=== PATIENT | male | born 1940 | race Caucasian/White ===

== ENCOUNTER 2018-06-28 07:36 | Emergency (ER) | payer MEDICARE, OTHER, SELFPAY ==
[2018-06-28 07:39] VITALS: BP 158/90; PULSE 61; RESP 14; TEMP 37.1; O2SAT 96; BMI 28.7
--- NOTE | 2018-06-28 07:47 | RAD_ITS ---
STUDY: X-RAY - LEFT WRIST REASON FOR EXAM: Male, 77 years old. Pain and swelling. No known injury. TECHNIQUE: 3 view(s) of the wrist were obtained. COMPARISON: None. FINDINGS: Normal visualized distal radius and ulna. Normal radiocarpal articulation. Normal distal radioulnar articulation. Normal carpal bones. Normal carpal articulations. There is degenerative arthrosis of the carpometacarpal articulation of the thumb. Normal second through fifth carpometacarpal articulations. Normal visualized metacarpal bones. Soft tissue swelling. RAD/Wrist min 3 Views IMPRESSION: Degenerative changes at the first carpometacarpal joint. Soft tissue swelling. Electronically Signed: Carlos Prater MD at 8:24 EST Tel [phone], Service support ,
--- NOTE | 2018-06-28 07:51 | ED.VISSUMM ---
- ER Visit Summary Date of Service: 06/28/18 Chief Complaint: Atraumatic pain and swelling left wrist History of Present Illness: The patient is a 77 M who presents with atraumatic pain and swelling of left wrist that started yesterday. He states the pain was initially on the ulnar side. Now the pain and swelling encompasses the entire wrist. There is swelling of all of his digits. He denies paresthesia, anesthesia or motor weakness. He denies fever, chills or night sweats. He denies history of gout, pseudogout and is on no antihypertensive medication and specifically hydrochlorothiazide. He denies recent infectious symptoms. He is right-hand dominant. Physical Examination: Vital signs noted and remarkable for elevated blood pressure 158/90. The left wrist is swollen. There is slight discoloration of the skin. There is slight warmth. There is no effusion. There is no lymphangitis and there is no epitrochlear or axillary lymphadenopathy. Capillary refill is normal. Sensation is normal. Median, radial and ulnar function intact. Test Results: Three-view x-ray of the wrist was obtained and interpreted by me as negative for any acute process. There is minimal arthritic changes. There is no fluid noted in the joint. There is no evidence of chondrocalcinosis. White count is 66,000 with 88% segs. Gram stain revealed 3+ WBCs with no organisms. Fluid for crystals will be reviewed by pathologist. Emergency Department Course and Treatment: Differential includes pseudogout, gout and pyogenic arthritis. Will obtain x-ray to determine if there is any significant abnormality otherwise will need to perform arthrocentesis. Patient was consented for arthrocentesis. He was explained risk benefits of the procedure and why the procedure need to be performed. He was given an opportunity ask questions and none were asked. The area was cleansed with ChloraPrep. The skin was anesthetized with 1% lidocaine. The joint was entered and 2 cc of padmini turbid fluid was aspirated. One-to-one mixture of 1% lidocaine and Kenalog was instilled into the joint. Patient tolerated procedure with minimal discomfort. The discomfort was secondary to placing the wrist in proper position i.e. 15-30 degrees of flexion with distraction. Synovial fluid was sent for cell count, differential, crystals and culture. Treatment Plan: Since patient reports improvement after injection with Kenalog and lidocaine will discharge to home especially since there are no organisms seen. It is not uncommon to have synovial count up to and or greater than 100,000 with gout. 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 It may contain incorrect words, spelling, and punctuation that were not noted in review of the chart prior to signing ED Disposition - Plan for ED Patient: Disposition: Home or Assisted Living Chief Complaint: Upper Extremity Injury Instructions: ED Arthritis Gout, ED Diet Gout Referrals: Damon Heaton DO [Primary Care Provider] - 1-2 Days if not improving
[2018-06-28 08:08] VITALS: RESP 20
[2018-06-28] MEDS: Triamcinolone Acetonide 40 MG/ML Vial IU (09:00)
[2018-06-28 09:04] LABS: Pathologist Comment May follow
[2018-06-28 09:34] LABS: RBC /Synovial Fluid 0.019 10^6/uL (0); Synovial Fld Mononuclear WBC % 12.1 %; Synovial Fld Polynuclear WBC % 87.9 %
[2018-06-28 09:56] LABS: AUTO B FLUID DILUENT BKGD CT WBC <0.1 RBC <0.01 (W<.1,R<.01); Appearance /Synovial Fluid Cloudy (CLEAR); Source / Synovial Fluid LEFT WRIST; Source- Body Fluid SYNOVIAL
[2018-06-28 10:07] LABS: Lymph 18 %; Neutrophil 82 % (0-25)
[2018-06-28 10:08] LABS: Body Fluid QC Type(s) BF1Q,BF2Q
[2018-06-28 11:01] VITALS: RESP 18
[2018-06-28 11:56] LABS: Pathologist Review Reviewed
== END 2018-06-28 11:03 | disposition home or self-care (01) ==
PROVIDERS: Emergency Provider Emergency Medicine; Family Provider Student in an Organized Health Care Education/Training Program; PCP Student in an Organized Health Care Education/Training Program
DX: M10.9 Gout, unspecified (principal); M13.132 Monoarthritis, not elsewhere classified, left wrist
CPT/HCPCS: 20605; 20610; 73110; 87070; 87075; 87205; 89050; 89051; 89060; 99283

== ENCOUNTER 2018-07-27 20:46 | Emergency (ER) | payer MEDICARE, OTHER, SELFPAY ==
[2018-07-27 20:47] VITALS: BP 158/97; PULSE 89; RESP 18; TEMP 37.5; O2SAT 96; BMI 28.5
--- NOTE | 2018-07-27 21:01 | ED.VISSUMM ---
- ER Visit Summary Date of Service: 07/27/18 Chief Complaint: Left knee pain and swelling History of Present Illness: The patient is a 77 M nontraumatic left knee pain and swelling worsened this morning. 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 No catching or locking. States has had a bad knee on the side for the past 10 years. Reports a fever 101 this morning, no antipyretics. No cough. No vomiting or diarrhea. No urinary symptoms. Len was seen here in the ED 2 months ago for left wrist pain and swelling had a diagnostic arthrocentesis positive for gout. Len was also given steroid injections of the joint at that time. Denies any increasing alcohol, red meats, or seafood. Physical Examination: General: Alert and oriented ?3, no acute distress HEENT: Normocephalic, atraumatic. Moist mucosa membranes Neck: supple, nontender. Cardiovascular: Regular rate and rhythm, no murmurs Respiratory: Normal breath sounds, symmetric, no distress Abdomen: Soft, nontender, nondistended Extremities: Left lower extremity: Negative logroll. Knee extensor mechanism intact. There is prepatellar knee effusion noted. There is mild warmth with no erythema. No pain with short arc of motion. Skin was intact. Neuro: no focal neurological deficits. Test Results: Synovial joint fluid: White blood cell count 53,000. Pending crystals, culture, Gram stain. WBC 7.6, ESR 11. Blood cultures x2. Left knee x-ray degenerative findings. Emergency Department Course and Treatment: Patient nontraumatic knee effusion. Reported a fever 101 today. No cough or urine symptoms. Pain with movement of the knee due to effusion. Slightly warm to palpation with no erythema. Afebrile in the ED. I discussed workup to rule out septic joint. Written consent risks and benefits discussed. A total of 43 cc of dark turbid muddy synovial fluid was obtained. White blood cell count was 53,000. He did have improvement with fluid aspiration. I did place 2 cc of lidocaine 1%, avoided steroids for working diagnosis of septic joint. I did evaluate his joint aspirations of her wrist a month ago had a white count of 63,000 that time and negative cultures. I did check labs for further evaluation. Pending labs I spoke with orthopedics, Dr. Nathan Willingham for which patient has seen in the past. Discussed presentation and findings and concerns with lower white blood cell count and his risk a month ago. He discusses low suspicion of septic joint with lower values in the recent addition no joint evaluation. He is more concerns for rheumatological issues. Discussed the muddy fluid which he states he seen that with pseudogout in the past. He recommended to be seen by his PCP a referral to rheumatology as an outpatient. Discussed patient already has significant degenerative changes of the knee which will probably require surgery in the future. Labs returned, white count normal ESR normal. Discussed with patient plan of care, he states he would like to go home follow-up with his PCP. I will write him for Indocin for treatment. Discussed signs and symptoms to return. Otherwise follow-up with his PCP. Treatment Plan: [] Disposition: Discharge Impression: 1. Left knee effusion 2. Inflammatory arthropathy 3. Status post joint aspiration This note was generated with [employer] dictation software. It may contain incorrect words, spelling, and punctuation that were not noted in review of the chart prior to signing ED Disposition - Plan for ED Patient: Disposition: Home or Assisted Living Chief Complaint: Lower Extremity Injury Diagnosis: Inflammatory arthropathy, Effusion, left knee Instructions: ED Effusion Knee Prescriptions: Indomethacin [Indocin] 25 mg PO BID PRN #30 capsule PRN Reason: Pain Referrals: Damon Heaton DO [Primary Care Provider] - 3-5 Days Additional Instructions: Left knee effusion and pain. Joint aspiration performed. Lower values compared to your wrists a month ago. With multiple joints involved, discussed with Dr. Nathan Willingham or so, will need likely rheumatoid workup for arthropathy. Can start with your family physician and referral as needed. Take Indocin as needed.
--- NOTE | 2018-07-27 21:17 | RAD_ITS ---
STUDY: X-RAY - LEFT KNEE REASON FOR EXAM: Male, 77 years old. Pain. TECHNIQUE: 4 view(s) of the knee. COMPARISON: None. FINDINGS: Normal visualized distal femur. Normal visualized proximal tibia and fibula. Normal proximal tibiofibular articulation. There is no demonstrated fracture. There is severe degenerative arthrosis of the medial femorotibial compartment with severe joint space narrowing. There is moderate degenerative arthrosis of the lateral femorotibial compartment with moderate joint space narrowing. There is moderate degenerative arthrosis of the patellofemoral articulation. There is a moderate volume joint effusion. The soft tissue structures are unremarkable. RAD/Knee 4 or More Views IMPRESSION: Degenerative arthrosis. Joint effusion. Electronically Signed: Abhishek Sahu MD at 22:17 EST , Service support ,
[2018-07-27 23:50] LABS: Pathologist Comment May follow
[2018-07-28 00:05] LABS: Synovial Fld Mononuclear WBC % 13.3 %; Synovial Fld Polynuclear WBC # 43.881 10^3/ul; Synovial Fld Polynuclear WBC % 86.7 %
[2018-07-28 00:19] LABS: AUTO B FLUID DILUENT BKGD CT WBC <0.1 RBC <0.01 (W<.1,R<.01); Appearance /Synovial Fluid Turbid (CLEAR); Color / Synovial Fluid Red (Pale Yellow); Source / Synovial Fluid LEFT KNEE; Source- Body Fluid SYNOVIAL; Viscosity / Synovial Fluid Sl. Viscous (HIGH)
[2018-07-28 00:37] LABS: Body Fluid QC Type(s) BF1Q,BF2Q
[2018-07-28 00:40] LABS: Lymph 2 %; Monocyte /Synovial Fluid 7 %; Neutrophil 91 % (0-25)
[2018-07-28 00:46] VITALS: BP 119/61; PULSE 69; RESP 15; O2SAT 95
[2018-07-28 01:04] LABS: Absolute Lymphocyte Count 1.23 X10^3/ul (0.83-4.51); Absolute Neutrophil Count 5.1 X10^3/uL (2.0-7.7); Basophil# 0.01 X10^3/uL; Basophil% 0.1 % (0-1); Eosinophil# 0.03 X10^3/uL; Eosinophils% 0.4 % (0-5); Hematocrit 36.5 % (40-54); Hemoglobin 11.8 g/dl (13.0-16.5); Lymphocyte # 1.23 X10^3/ul (4.0); Lymphocyte % 16.2 % (19-41); Mean Corp Hgb Conc 32.3 g/gl (32-36); Mean Corpuscular Hgb 27.9 pg (27.0-32.0); Mean Corpuscular Volume 86.3 fL (80-94); Mean Platelet Vol. 9.8 fl (6.2-12.0); Monocyte# 1.19 X10^3/uL; Monocyte% 15.7 % (0-10); Neutrophil # 5.09 X10^3/uL (2.7-7.7); Neutrophil % 67.3 % (47-70); Platelet Count 222 K/mm3 (150-450); RBC Distribution Width CV 14.9 % (11.6-14.6); RBC Distribution Width SD 46.3 fl (35.1-43.9); Red Blood Count 4.23 M/mm3 (4.6-6.2); White Blood Count 7.6 K/mm3 (4.4-11.0)
[2018-07-28 01:05] LABS: Erythrocyte Sedimentation Rate 11 mm/hr (0-20); POSITIVE COUNT NO; POSITIVE DIFFERENTIAL NO; POSITIVE MORPHOLOGY NO
[2018-07-28 01:08] LABS: Anion Gap 7 (5-15); BUN 15 mg/dL (7-18); BUN/Creat Ratio 14.9 RATIO (10-20); Chloride 110 mmol/L (98-107); Creatinine, Serum 1.01 mg/dL (0.70-1.30); EST Glomerular Filtration Rate 76 mL/min (>60); Est Glom Filt Rate - Afr Amer 92 mL/min (>60); Estimated Creatinine Clearance 71.42 ml/min; Glucose 110 mg/dL (74-106); Potassium 3.7 mmol/L (3.5-5.1); Sodium Level 143 mmol/L (136-145)
[2018-07-28 01:14] LABS: International Normalized Ratio 1.2; Prothrombin Time (Protime)PT. 15.2 SECONDS (11.7-14.9)
[2018-07-28 01:15] LABS: Partial Thromboplast Time 34.4 Seconds (24.1-36.2)
[2018-07-28 01:30] VITALS: BP 119/61; PULSE 69; RESP 15; O2SAT 95
[2018-07-29 14:16] LABS: Pathologist Review Reviewed
== END 2018-07-28 01:53 | disposition home or self-care (01) ==
PROVIDERS: Emergency Provider Emergency Medicine; Family Provider Student in an Organized Health Care Education/Training Program; PCP Student in an Organized Health Care Education/Training Program
DX: M06.4 Inflammatory polyarthropathy (principal)
CPT/HCPCS: 20610; 73564; 80048; 85025; 85610; 85652; 85730; 86140; 87040; 87070; 87075; 87205; 89050; 89051; 89060; 99283; A4216

== ENCOUNTER 2021-08-11 04:16 | Emergency (ER) | payer MEDICARE, OTHER, SELFPAY ==
[2021-08-11 04:17] VITALS: BP 143/110; PULSE 71; RESP 18; TEMP 36.5; O2SAT 95; BMI 29.1
[2021-08-11 04:25] VITALS: BP 147/80; PULSE 71; RESP 18; TEMP 36.5; O2SAT 95
--- NOTE | 2021-08-11 04:27 | EDS_ITS ---
HPI HPI - URI History of Present Illness Chief Complaint: Sore Throat Detail of Chief Complaint: Throat pain that he localizes near the larynx Informant: patient Onset/Context/Timing Onset: Yesterday Context: Sudden Onset Timing: Continuous and Waxes and wanes Quality: Pain Location: Anterior neck Current Severity: Mild Maximum Severity: Severe Worsened by: Swallowing Associated Symptoms Associated Symptoms: Negative for Nasal Congestion, Headache, Sinus Pressure, Myalgias, Nausea, Vomiting, Diarrhea, Shortness of Breath, Chest Pain, Nonproductive cough, Hemoptysis and Productive Cough Narrative Narrative: Patient is a 80-year-old male with allergy to azithromycin who presents with throat pain that he localizes to the anterior neck in the area of the larynx. He states that hurts worse to swallow liquids or solids. He denies drooling. He denies fever or chills. He denies night sweats or weight loss. He denies headache. He denies visual, ocular auditory symptoms. He denies rhinorrhea, congestion or postnasal drainage. He denies cough or shortness of breath. He denies chest discomfort. Prior similar symptoms: No Recent Illness/Hospitalization: No ROS ROS ED Constitutional Constitutional ED: Denies chills, fever(s), subjective, sweats or weight loss Eyes Eyes: Denies blurry vision, change in vision or diplopia ENT ENT ED: Reports sore throat; Denies ear pain or rhinorrhea Cardiovascular Cardiovascular: Denies chest pain or palpitations Respiratory/Chest Respiratory/Chest: Denies cough, dyspnea or dyspnea on exertion Gastrointestinal Gastrointestinal: Denies nausea or vomiting Musculoskeletal Musculoskeletal: Reports neck pain; Denies arthralgias, back pain or myalgias Integumentary Denies rash Neurologic Neurologic: Denies headache(s), paresthesias or weakness Allergic/Immunologic Allergic/Immunologic ED: Denies mouth swelling, tongue swelling or urticaria PFSH PFSH Medical History no medical history no medical history Home Medications indomethacin 25 mg PO BID PRN #30 capsule 07/28/18 [Rx Last Taken Unknown] Allergy/AdvReac Type Severity Reaction Status Date / Time azithromycin [From Zithromax] AdvReac Other Verified 07/27/18 20:49 Surgical History no surgical history no surgical history Social History (Updated 08/11/21 @ 04:[address] Gilberto Lewis MD) household members: spouse Smoking Status: Never smoker substance use type: does not use EXAM Physical Exam Const Vital Signs: 08/11/21 04:17 08/11/21 04:25 Temperature 97.7 F L 97.7 F L Temperature Source Temporal Temporal Pulse Rate 71 71 Respiratory Rate 18 18 Blood Pressure 143/110 H 147/80 H Blood Pressure Mean 121 102 Pulse Ox 95 95 Oxygen Delivery Method Room Air Room Air Positive well nourished and well developed General Appearance ED: well developed and NAD; Negative for cyanotic, diaphoretic or pallor HEENT Reports TM's clear and moist mucous membranes HEENT Narrative: Uvula is midline. There is no evidence of angioedema. There is no exudate P. There is no petechia of the soft palate. normocephalic and atraumatic External Ear: external ears normal, mastoids normal and no preauricular adenopathy External Auditory Canal: EAC's normal Tympanic Membrane ED: Yes TM's clear Throat: posterior oropharynx normal Eyes PERRL and EOMs intact bilaterally General Eye ED: Negative for pale conjunctiva or scleral icterus Neck no lymphadenopathy, supple, no meningeal signs and no JVD General: other Trachea is midline. There is no inspiratory or expiratory stridor. There is no pain with movement of the larynx. ; Negative for anterior neck swelling or lymphadenopathy Resp normal respiratory effort and clear to auscultation bilaterally Cardio S1 normal heart sound, S2 normal heart sound and no murmurs Rate: regular rate Rhythm: regular rhythm Neuro oriented x3 and CN's II-XII intact bilaterally Sensorium / Orientation: alert Psych mental status grossly normal Skin General Skin Exam: Negative for jaundice or pallor Lesions: no lesions Rashes: no rashes MDM MDM MDM Narrative Medical decision making narrative: With a normal-appearing posterior pharynx and pain in the area of the larynx need to evaluate for retropharyngeal abscess, epiglottitis and parapharyngeal abscess. CBC was obtained assess white count. Soft tissue x-ray of the neck was obtained to evaluate for prevertebral swelling and to evaluate the epiglottis. Clinically there is no evidence of Ludewig's angina. There is no trismus. Centor score is 0 and reason rapid strep was not performed. Positive rapid strep with most likely represent a false positive test. Patient was informed of his results at 0508. He was discharged home in stable condition with appropriate home-going instructions. Lab Data Attestation: I reviewed the patient's lab results. Labs: Laboratory Results - last 24 hr 08/11/21 08/11/21 04:35 04:35 WBC 7.1 RBC 4.88 Hgb 15.7 Hct 46.9 MCV 96.1 H MCH 32.2 H MCHC 33.5 RDW Std Deviation 44.8 H RDW Coeff of Silvana 12.5 Plt Count 232 MPV 9.9 Immature Gran % (Auto) 0.300 Neut % (Auto) 63.7 Lymph % (Auto) 15.0 L Merrick % (Auto) 16.2 H Eos % (Auto) 3.8 Baso % (Auto) 1.0 Absolute Neuts (auto) 4.5 Absolute Lymphs (auto) 1.06 Nucleated RBC % 0 Sodium 141 Potassium 3.9 Chloride 106 Carbon Dioxide 29.0 Anion Gap 6 BUN 18 Creatinine 0.90 Estim Creat Clear Calc 74.25 Est GFR (MDRD) Af Amer 105 Est GFR (MDRD) Non-Af 87 BUN/Creatinine Ratio 20.1 H Glucose 105 Calcium 8.9 Radiography Diagnostic Testin view x-ray of the neck soft tissue reveals no evidence of epiglottitis, lingular tonsillitis, prevertebral soft tissue swelling and negative steeple sign. The soft tissue x-ray of the neck that was interpreted by me at 0459 is unremarkable for any acute pathology. Discharge Plan Triage Chief Complaint: Sore Throat ED Provider: Gilberto Lewis Dx/Rx/DC Orders Clinical Impression: Pharyngitis, acute Instructions: ED Pharyngitis, Viral Prescriptions: No Action indomethacin 25 MG capsule 25 mg PO BID PRN (Reason: Pain) Qty: 30 RF: 0 Primary Care Provider: Damon Heaton Referrals: Damon Heaton, [Primary Care Provider] - 10-14 Days if not better Activity Restrictions/Additional Instructions: 1. If you are unable to swallow or have drooling or any difficulty breathing return to the emergency department immediately 2. You may use either Chloraseptic spray or Cepastat lozenges for discomfort. This will give you relief for 30 to 60 minutes Disposition Disposition: Home, Self Care
--- NOTE | 2021-08-11 04:45 | RAD_ITS ---
STUDY: X-RAY - SOFT TISSUE NECK REASON FOR EXAM: Male, 80 years old. Throat pain larynx region TECHNIQUE: 2 view(s) of the neck were obtained. COMPARISON: None. FINDINGS: Normal visualized nasopharynx, oropharynx, hypopharynx. Normal epiglottis. Normal visualized subglottic tracheal air column. Normal prevertebral soft tissue structures. Normal visualized osseous structures. The soft tissue structures are unremarkable. RAD/Neck for Soft Tissue IMPRESSION: Normal x-ray soft tissue neck. Electronically Signed: Eliazar Jules DO at 5:12 EST Tel , Service support ,
[2021-08-11 04:50] LABS: Absolute Lymphocyte Count 1.06 X10^3/uL (0.83-4.51); Absolute Neutrophil Count 4.5 X10^3/uL (2.0-7.7); Basophil# 0.07 X10^3/uL; Eosinophil# 0.27 X10^3/uL; Eosinophils% 3.8 % (0-5); Hematocrit 46.9 % (40-54); Hemoglobin 15.7 g/dL (13.0-16.5); Lymphocyte # 1.06 X10^3/ul (0.83-4.51); Mean Corp Hgb Conc 33.5 g/dL (32-36); Mean Corpuscular Hgb 32.2 pg (27.0-32.0); Mean Corpuscular Volume 96.1 fL (80-94); Mean Platelet Vol. 9.9 fl (6.2-12.0); Monocyte# 1.14 X10^3/uL; Monocyte% 16.2 % (0-10); NRBC Flagged by Analyzer 0 % (0-5); Neutrophil # 4.49 X10^3/uL (2.7-7.7); Neutrophil % 63.7 % (47-70); Platelet Count 232 K/mm3 (150-450); RBC Distribution Width CV 12.5 % (11.6-14.6); RBC Distribution Width SD 44.8 fl (35.1-43.9); Red Blood Count 4.88 M/mm3 (4.6-6.2); White Blood Count 7.1 K/mm3 (4.4-11.0)
[2021-08-11 05:03] LABS: Anion Gap 6 (5-15); BUN 18 mg/dL (7-18); BUN/Creat Ratio 20.1 RATIO (10-20); Calcium,Total 8.9 mg/dL (8.5-10.1); Chloride 106 mmol/L (98-107); EST Glomerular Filtration Rate 87 mL/min (>60); Est Glom Filt Rate - Afr Amer 105 mL/min (>60); Estimated Creatinine Clearance 74.25 ml/min; Glucose 105 mg/dL (74-106); Potassium 3.9 mmol/L (3.5-5.1); Sodium Level 141 mmol/L (136-145)
== END 2021-08-11 05:33 | disposition home or self-care (01) ==
LOC: ED 05:25
PROVIDERS: Emergency Provider Emergency Medicine; PCP Student in an Organized Health Care Education/Training Program; Visit Provider Emergency Medicine
DX: J02.9 Acute pharyngitis, unspecified (principal)
CPT/HCPCS: 70360; 80048; 85025; 99283

== ENCOUNTER 2022-03-03 19:51 | Inpatient (IN) | payer MEDICARE, OTHER, SELFPAY ==
[2022-03-03] VITALS (8 sets, daily range): BP systolic 115–141; BP diastolic 69–94; PULSE 53–70; RESP 16–24; TEMP 36.6–37.3; O2SAT 22–97; BMI 29.1; BMI 29.7
--- NOTE | 2022-03-03 20:22 | EKG12_ITS ---
Test Reason : DYSRHYTHMIA Blood Pressure : / mmHG Vent. Rate : 056 BPM Atrial Rate : 056 BPM P-R Int : 168 ms QRS Dur : 118 ms QT Int : 436 ms P-R-T Axes : 031 -41 029 degrees QTc Int : 420 ms Sinus bradycardia Left axis deviation Abnormal ECG Confirmed by LAISHA SORIA, TIANA ([id number]), communications editor PRETTY DE LA ROSA ([id number]) on 03/04/2022 1:11:57 PM Referred By: JAYSON Confirmed By:TIANA INTERIANO MD
--- NOTE | 2022-03-03 20:22 | CT_ITS ---
We are attempting to reach an attending provider to discuss findings. An addendum with communication details will be sent when the communication is complete. EXAM: CT ANGIOGRAPHY HEAD AND NECK WITH INTRAVENOUS CONTRAST CLINICAL INDICATION: Neuro deficit, acute, stroke suspected Technologist Notes Ataxic gait, falling backwards. TECHNIQUE: [place]/head and neck CT angiography protocol performed with intravenous contrast. This CT exam was performed using one or more of the following dose reduction techniques: automated exposure control, adjustment of the mA and/or kV according to patient size, and/or use of iterative reconstruction technique. This report was created using [employer] report [employer] technology. MIP reconstructed images were created and reviewed. CONTRAST: IV 100mL Isovue-370 RADIATION DOSE: CTDIvol = 24.48 mGy, DLP = 804.17 mGy-cm COMPARISON: None. FINDINGS: HEAD: RIGHT ANTERIOR CEREBRAL ARTERY: Unremarkable. No significant stenosis at the visualized segments. Anterior communicating artery is present. No aneurysm. RIGHT MIDDLE CEREBRAL ARTERY: Unremarkable. No significant stenosis at the visualized segments. No aneurysm. RIGHT POSTERIOR CEREBRAL ARTERY: Unremarkable. No occlusion or significant stenosis. No aneurysm. RIGHT INTRACRANIAL INTERNAL CAROTID ARTERY: Unremarkable. No significant stenosis. No dissection or occlusion. RIGHT INTRACRANIAL VERTEBRAL ARTERY: Unremarkable. No significant stenosis. No dissection or occlusion. LEFT ANTERIOR CEREBRAL ARTERY: Unremarkable. No significant stenosis at the visualized segments. No aneurysm. LEFT MIDDLE CEREBRAL ARTERY: Unremarkable. No significant stenosis at the visualized segments. No aneurysm. LEFT POSTERIOR CEREBRAL ARTERY: Unremarkable. No occlusion or significant stenosis. No aneurysm. LEFT INTRACRANIAL INTERNAL CAROTID ARTERY: Unremarkable. No significant stenosis. No dissection or occlusion. LEFT INTRACRANIAL VERTEBRAL ARTERY: Unremarkable. No significant stenosis. No dissection or occlusion. BASILAR ARTERY: Unremarkable. No significant stenosis. No aneurysm. OTHER VASCULATURE: There are no acute findings of the right and left internal carotid artery. ALL ABOVE CRITERIA BY NASCET. 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 ALL ABOVE CRITERIA BY NASCET. NECK: RIGHT COMMON CAROTID ARTERY: Unremarkable. No significant stenosis. No dissection or occlusion. RIGHT EXTRACRANIAL INTERNAL CAROTID ARTERY: Unremarkable. No significant stenosis. No dissection or occlusion. RIGHT EXTERNAL CAROTID ARTERY: Unremarkable. No occlusion. RIGHT EXTRACRANIAL VERTEBRAL ARTERY: Unremarkable. No significant stenosis. No dissection or occlusion. LEFT COMMON CAROTID ARTERY: Unremarkable. No significant stenosis. No dissection or occlusion. LEFT EXTRACRANIAL INTERNAL CAROTID ARTERY: Unremarkable. No significant stenosis. No dissection or occlusion. LEFT EXTERNAL CAROTID ARTERY: Unremarkable. No occlusion. LEFT EXTRACRANIAL VERTEBRAL ARTERY: Unremarkable. No significant stenosis. No dissection or occlusion. GREAT VESSELS OF AORTIC ARCH: There is calcified plaque formation of the left cavernous carotid artery, with a mild stenosis (less than 50%). ALL ABOVE CRITERIA BY NASCET. LUNG APICES: Unremarkable as visualized. HEAD and NECK: BONES/JOINTS: There are degenerative findings of the cervical spine. No discrete lytic or blastic abnormalities. SOFT TISSUES: Unremarkable. CAROTID STENOSIS REFERENCE USING NASCET CRITERIA: % ICA stenosis = (1 - narrowest ICA diameter/diameter of distal cervical ICA) x 100. Mild - <50% stenosis. Moderate - 50-69% stenosis. Severe - 70-94% stenosis. Near occlusion - 95-99% stenosis. Occluded - 100% stenosis. CT/STROKE CTA Head AND Neck W/Con IMPRESSION: 1. There are no acute findings of the right and left internal carotid artery. ALL ABOVE CRITERIA BY NASCET. 2. 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 ALL ABOVE CRITERIA BY NASCET. 3. There is calcified plaque formation of the left cavernous carotid artery, with a mild stenosis (less than 50%). ALL ABOVE CRITERIA BY NASCET. Electronically Signed: Jose Keene MD at 21:03 EDT ,
--- NOTE | 2022-03-03 20:22 | CT_ITS ---
We are attempting to reach an attending provider to discuss findings. An addendum with communication details will be sent when the communication is complete. EXAM: CT HEAD WITHOUT INTRAVENOUS CONTRAST CLINICAL INDICATION: Neuro deficit, acute, stroke suspected -- Ataxic gait, falling backwards TECHNIQUE: Multiple axial images were obtained of the head without intravenous contrast. This CT exam was performed using one or more of the following dose reduction techniques: automated exposure control, adjustment of the mA and/or kV according to patient size, and/or use of iterative reconstruction technique. This report was created using [employer] report generation technology. COMPARISON: Nov 15 2010 9:49pm report only FINDINGS: BRAIN AND EXTRA-AXIAL SPACES: Chronic involutional changes of the brain. No intra- or extra-axial hemorrhage. No evidence of acute infarct. No intracranial mass or mass effect. There is preservation of the manuel/white matter interface. Posterior fossa structures are unremarkable. Ventricles are appropriate for age. No hydrocephalus. Basal cisterns are patent. BONES/JOINTS: Unremarkable. No discrete lytic or blastic abnormalities. VASCULATURE: There are calcifications noted in the distal vertebral arteries. There are calcifications noted in the cavernous carotid arteries. This is consistent for atherosclerotic disease. SINUSES: There is a mucous retention cyst and/or polyp of the left maxillary sinus. MASTOID AIR CELLS: Chronic left mastoiditis. ORBITS: Visualized globes, extraocular muscles, optic nerves and retrobulbar fat appear unremarkable. TUBES, LINES AND DEVICES: Metallic electrode visualized in the left skull. CT/STROKE Brain/Head without Cont IMPRESSION: 1. Chronic involutional changes of the brain. 2. Chronic left mastoiditis. ASSESSMENT: ASPECTS ([place] Stroke Program Early CT Score) is 10. Critical finding called and case discussed. Electronically Signed: Jose Keene MD at 20:45 EDT ,
--- NOTE | 2022-03-03 20:25 | EDS_ITS ---
HPI History of Present Illness Chief Complaint: Other, Pain/Inj Detail of Chief Complaint: Difficulty walking and falling Informant: patient and spouse/S.O. Onset/Context/Timing Onset: Hours (Onset 1500) Context: Sudden Onset Timing: Continuous Quality and Location: Positive for Difficulty with Ambulation Current Severity: Mild Maximum Severity: Moderate Worsened by: Nothing specific Relieved by: Nothing Associated Symptoms Associated Symptoms: Positive for - (No ocular complaints); Negative for Headache, Nausea, Vomiting or Chest Pain Narrative Narrative: Patient is a 81-year-old male who presents with difficulty walking. Onset 1500. states she went to car pick up driver her to go to a . She noted he was having difficulty walking. She brought him to the emergency department. He denies headache. He denies double vision, blurred vision loss of vision. [place] ringing his ears decreased hearing. Denies trouble with speech or swallowing. Denies neck pain. Denies cardiac respiratory symptoms. Denies nausea or vomiting. Denies anesthesia, paresthesia or weakness in his extremities. According to he had similar presentation 20 years ago had an MRI of his brain at that time at [facility] and was told there was no abnormality. 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 Social History household members: spouse Smoking Status: Never smoker substance use type: does not use ROS ROS ED Constitutional Constitutional ED: Denies chills, fever(s), subjective, sweats or weakness Eyes Eyes: Denies blurry vision, change in vision or diplopia ENT ENT ED: Denies ear pain, rhinorrhea or sore throat Cardiovascular Cardiovascular: Denies chest pain, palpitations or racing heartbeat Respiratory/Chest Respiratory/Chest: Denies cough, dyspnea or dyspnea on exertion Gastrointestinal Gastrointestinal: Denies abdominal pain, constipation, diarrhea, melena, nausea or vomiting Genitourinary Genitourinary ED: Denies dysuria, hematuria or urinary frequency Musculoskeletal Musculoskeletal: Denies arthralgias, back pain, myalgias or neck pain Neurologic Neurologic: Reports other Details: Difficulty ambulating ; Denies headache(s), paresthesias or weakness Psychiatric Psychiatric: Denies anxiety Endocrine Endocrinology: Denies polydipsia or polyphagia Hematologic/Lymphatic Hematologic/Lymphatic: Denies easy bleeding or easy bruising EXAM Physical Exam Const Vital Signs: 03/03/22 19:53 03/03/22 20:05 03/03/22 20:43 Temperature 98.1 F Temperature Source Temporal Pulse Rate 54 L 54 L Respiratory Rate 16 22 H Blood Pressure 116/69 141/79 H Blood Pressure Mean 84 99 Pulse Ox 97 95 Oxygen Delivery Method Room Air Room Air Room Air 03/03/22 20:22 03/03/22 20:43 Temperature Temperature Source Pulse Rate 56 L 60 Respiratory Rate 18 20 H Blood Pressure 115/76 115/76 Blood Pressure Mean 89 89 Pulse Ox 94 95 Oxygen Delivery Method Room Air Room Air Positive well nourished; Negative for unkempt General Appearance ED: NAD; Negative for unkempt HEENT Reports moist mucous membranes atraumatic Nose: other Other Details: Nares patent. Teeth are unremarkable. Uvula midline. No deviation tongue with protrusion. Eyes PERRL and EOMs intact bilaterally Eyes Narrative: There is no nystagmus. There is no APD. Neck no lymphadenopathy, supple and no JVD Neck Narrative: There is no carotid bruit. Resp normal respiratory effort and clear to auscultation bilaterally Cardio no murmurs Rate: regular rate Rhythm: regular rhythm Heart Sounds: S1 normal and S2 normal GI normal to inspection, nondistended, normoactive bowel sounds, soft to palpation, non-tender, non-distended and no masses Back/Spine no CVA tenderness Cervical Spine: Negative for cervical spine tenderness Thoracic Spine / Upper Back: Negative for thoracic spinal tenderness Lumbar Spine / Lower Back: lumbar spinal tenderness Extremity normal to inspection General Extremety ED: Negative for deformity, edema or tenderness General Extremity: Negative for deformity or edema Neuro oriented x3, CN's II-XII intact bilaterally and no sensory deficits noted Neuro Narrative: Romberg eyes open and close revealed mild past-pointing on the left with eyes closed. Gait was observed and is ataxic. Patient preferentially falls posteriorly. Dimitri Coma Scale: document GCS findings Spontaneous Obeys Commands Oriented 15 Sensorium / Orientation: alert, oriented to person, oriented to place and oriented to time Speech: speech normal Gait (Neuro): Negative for normal gait Sensory Exam: sensory level loss detected Motor Exam: strength 5/5 throughout Psych mental status grossly normal Appearance: Negative for unkempt Skin no wounds General Skin Exam: Negative for jaundice Lesions: no lesions Rashes: no rashes STROKE Vital Signs/Narrative: Vital Signs Temp Pulse Resp BP Pulse Ox O2 Del Method 03/03/22 20:43 60 20 H 115/76 95 Room Air 03/03/22 20:22 56 L 18 115/76 94 Room Air 03/03/22 20:43 Room Air 03/03/22 20:05 54 L 22 H 141/79 H 95 Room Air 03/03/22 19:53 98.1 F 54 L 16 116/69 97 Room Air NIHSS Initial: 1a Level of Consciousness: 0 1c LOC Commands (Only score 1st attempt): 0 2 Best Gaze (If aphasic, use reflexive mvmts.): 0 4 Facial Palsy: 0 5 Motor Arm Right (UN = amputation/fusion): 0 5 Motor Arm Left: 0 6 Motor Leg Right: 0 6 Motor Leg Left: 0 7 Limb ataxia (Only + if out of proportion): 0 8 Sensory (Aphasia/stupor=0 or 1, coma=2): 0 9 Best Language: 0 10 Dysarthria (mute, coma=2, intubated=UN): 0 11 Extinction and Inattention (only scored if +): 0 Total Score: 0 MDM MDM MDM Narrative Medical decision making narrative: With ataxic gait falling preferentially posteriorly concerned patient may have a vertebrobasilar infarct. We will need to assess for visual field cuts once he returns from radiology suite. Neurologist was Dr. Elgin FLETCHER. He agrees cerebellar stroke. He states with NIH of 1 he is not a candidate for embolectomy if 1 were to be present on the scan. Lab Data Attestation: I reviewed the patient's lab results. Lab results narrative: CBC is unremarkable. Coags are unremarkable. Glucose 1 3. Basic metabolic panel reveals a creatinine of 1.14 with a GFR of 66 Labs: Laboratory Results - last 24 hr 03/03/22 03/03/22 03/03/22 20:25 20:26 20:26 WBC 6.7 RBC 4.60 Hgb 14.8 Hct 44.5 MCV 96.7 H MCH 32.2 H MCHC 33.3 RDW Std Deviation 43.6 RDW Coeff of Silvana 12.3 Plt Count 187 MPV 9.7 Immature Gran % (Auto) 0.300 Neut % (Auto) 67.7 Lymph % (Auto) 12.6 L [place] % (Auto) 16.6 H Eos % (Auto) 2.2 Baso % (Auto) 0.6 Absolute Neuts (auto) 4.6 Absolute Lymphs (auto) 0.85 Nucleated RBC % 0 PT 14.1 INR 1.1 APTT 31.0 Sodium Potassium Chloride Carbon Dioxide Anion Gap BUN Creatinine Estim Creat Clear Calc Est GFR (MDRD) Af Amer Est GFR (MDRD) Non-Af BUN/Creatinine Ratio Glucose Calcium Troponin I High Sens POC Glucose 103 03/03/22 20:26 WBC RBC Hgb Hct MCV MCH MCHC RDW Std Deviation RDW Coeff of Silvana Plt Count MPV Immature Gran % (Auto) Neut % (Auto) Lymph % (Auto) [place] % (Auto) Eos % (Auto) Baso % (Auto) Absolute Neuts (auto) Absolute Lymphs (auto) Nucleated RBC % PT INR APTT Sodium 139 Potassium 4.0 Chloride 105 Carbon Dioxide 29.0 Anion Gap 5 BUN 19 H Creatinine 1.14 Estim Creat Clear Calc 57.67 Est GFR (MDRD) Af Amer 80 Est GFR (MDRD) Non-Af 66 BUN/Creatinine Ratio 16.7 Glucose 100 Calcium 8.9 Troponin I High Sens 7 POC Glucose Radiography Diagnostic Testing: Clinical Impression(s) from Imaging Studies Brain CT 03/03/22 20:22 IMPRESSION: 1. Chronic involutional changes of the brain. 2. Chronic left mastoiditis. ASSESSMENT: ASPECTS ([place] Stroke Program Early CT Score) is 10. Critical finding called and case discussed. Electronically Signed: Jose Keene MD at 20:45 EDT , ADDENDUM: 03/03/222052 IMPRESSION: 1. Chronic involutional changes of the brain. 2. Chronic left mastoiditis. ASSESSMENT: ASPECTS ([place] Stroke Program Early CT Score) is 10. Critical finding called and case discussed. N.B. : The above Results were Read Back by Jose Keene MD to Gilberto Lewis MD, and understanding confirmed on 03/03/2022 20:46:29 (ET). Electronically Signed: Jose Keene MD at 20:45 EDT , Head/Neck CTA 03/03/22 20:22 IMPRESSION: 1. There are no acute findings of the right and left internal carotid artery. ALL ABOVE CRITERIA BY NASCET. 2. 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 ALL ABOVE CRITERIA BY NASCET. 3. There is calcified plaque formation of the left cavernous carotid artery, with a mild stenosis (less than 50%). ALL ABOVE CRITERIA BY NASCET. Electronically Signed: Jose Keene MD at 21:03 EDT , ADDENDUM: 03/03/22 2111 IMPRESSION: 1. There are no acute findings of the right and left internal carotid artery. ALL ABOVE CRITERIA BY NASCET. 2. 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 ALL ABOVE CRITERIA BY NASCET. 3. There is calcified plaque formation of the left cavernous carotid artery, with a mild stenosis (less than 50%). ALL ABOVE CRITERIA BY NASCET. N.B. : The above Results were Read Back by Jose Keene MD to Gilberto Lewis MD, and understanding confirmed on 03/03/2022 21:04:43 (ET). Electronically Signed: Jose Keene MD at 21:03 EDT , Rhythm Strip Rhythm Strip: Sinus Rhythm Rate: 60 Ectopy: None EKG Initial EKG: Interpretation: Sinus Bradycardia (Ventricular rate of 56. MI interval 160 ms. Cures duration 118 ms. QT duration 436 ms. 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
[2022-03-03 20:34] LABS: Absolute Lymphocyte Count 0.85 X10^3/uL (0.83-4.51); Absolute Neutrophil Count 4.6 X10^3/uL (2.0-7.7); Basophil# 0.04 X10^3/uL; Basophil% 0.6 % (0-1); Eosinophil# 0.15 X10^3/uL; Eosinophils% 2.2 % (0-5); Hematocrit 44.5 % (40-54); Hemoglobin 14.8 g/dL (13.0-16.5); Lymphocyte # 0.85 X10^3/ul (0.83-4.51); Lymphocyte % 12.6 % (19-41); Mean Corp Hgb Conc 33.3 g/dL (32-36); Mean Corpuscular Hgb 32.2 pg (27.0-32.0); Mean Corpuscular Volume 96.7 fL (80-94); Mean Platelet Vol. 9.7 fl (6.2-12.0); Monocyte# 1.12 X10^3/uL; Monocyte% 16.6 % (0-10); NRBC Flagged by Analyzer 0 % (0-5); Neutrophil # 4.55 X10^3/uL (2.7-7.7); Neutrophil % 67.7 % (47-70); Platelet Count 187 K/mm3 (150-450); RBC Distribution Width CV 12.3 % (11.6-14.6); RBC Distribution Width SD 43.6 fl (35.1-43.9); White Blood Count 6.7 K/mm3 (4.4-11.0)
[2022-03-03 20:46] LABS: Bedside Glucose 103 mg/dL (74-106)
[2022-03-03 20:54] LABS: Anion Gap 5 (5-15); BUN 19 mg/dL (7-18); BUN/Creat Ratio 16.7 RATIO (10-20); Calcium,Total 8.9 mg/dL (8.5-10.1); Chloride 105 mmol/L (98-107); Creatinine, Serum 1.14 mg/dL (0.70-1.30); EST Glomerular Filtration Rate 66 mL/min (>60); Est Glom Filt Rate - Afr Amer 80 mL/min (>60); Estimated Creatinine Clearance 57.67 ml/min; Glucose 100 mg/dL (74-106); Sodium Level 139 mmol/L (136-145); Troponin-I HS 7 pg/mL (3.0-78.0)
[2022-03-03 20:56] LABS: International Normalized Ratio 1.1; Prothrombin Time (Protime)PT. 14.1 SECONDS (11.7-14.9)
--- NOTE | 2022-03-03 21:07 | RAD_ITS ---
STUDY: X-RAY CHEST REASON FOR EXAM: Male, 81 years old. Technologist Notes PT STATES HE IS OFF BALANCE WHEN HE WALKS. HR WAS NOTED TO BE 105 THEN DROPPED SUDDENLY TO 54 IN TRIAGE. Neuro deficit, acute, stroke suspected TECHNIQUE: XR Chest 1 View COMPARISON: Prior comparison studies are not available for review at this time. FINDINGS: There is no demonstrated pleural abnormality. Normal size heart. Normal mediastinum and arti. Normal visualized pulmonary arteries. There is atherosclerotic calcification of the aortic arch with tortuosity. There are diffuse degenerative changes of the visualized thoracic spine. There is degenerative osteoarthritis of the bilateral shoulders. There is no demonstrated abnormality of the visualized soft tissue structures of the upper abdomen. RAD/Chest 1 View IMPRESSION: There are no acute findings. Electronically Signed: Jose Keene MD at 21:30 EDT ,
--- NOTE | 2022-03-03 21:34 | HP.PCM_ITS ---
HPI - General General Date of Admission: 03/03/22 Date of Service: 03/03/22 Chief Complaint: ataxic gait HPI Narrative JORDI NIELSON, is a 81 M who presents the emergency room due to sudden change in his gait. Patient was walking around the car to get in to attend a when his noticed he was walking irregularly [id number] and almost fell down. The patient had a similar episode about a year ago which was worked up at [facility] and found to be negative for stroke. CT scan of the head is negative for acute findings and CT angiogram was negative for acute findings as well. Patient has an NIH score of 1 by ER physician. The patient denies any chest pain, shortness of breath, fever or chills. Patient denies any change in his speech from baseline and denies any loss of sensation at present he is reported to have an ataxic gait but otherwise no neurologic deficits. Due to concern for cerebellar infarct patient will be admitted for further neurologic evaluation and work-up. 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 Social History household members: spouse Smoking Status: Never smoker substance use type: does not use ROS Constitutional Constitutional: Denies chills or fever(s) Eyes Eyes: Denies change in vision ENT HEENT: Reports hearing loss Cardiovascular Cardiovascular: Denies chest pain Respiratory/Chest Respiratory/Chest: Denies shortness of breath at rest Gastrointestinal Gastrointestinal: Denies abdominal pain Genitourinary Genitourinary: Denies dysuria Musculoskeletal Musculoskeletal: Denies back pain Neurologic Neurologic: Reports abnormal gait; Denies abnormal speech Psychiatric Psychiatric: Denies depression Vital Signs Vital Signs Vital Signs: 03/03/22 19:53 03/03/22 20:05 03/03/22 20:43 Temperature 98.1 F Temperature Source Temporal Pulse Rate 54 L 54 L Respiratory Rate 16 22 H Blood Pressure 116/69 141/79 H Blood Pressure Mean 84 99 Pulse Ox 97 95 Oxygen Delivery Method Room Air Room Air Room Air 03/03/22 20:22 03/03/22 20:43 03/03/22 21:00 Temperature Temperature Source Pulse Rate 56 L 60 55 L Respiratory Rate 18 20 H 24 H Blood Pressure 115/76 115/76 119/78 Blood Pressure Mean 89 89 91 Pulse Ox 94 95 Oxygen Delivery Method Room Air Room Air Room Air Weight Weight: 215 lb Body Mass Index (BMI) 29.1 Physical Exam Const oriented x3, no apparent distress and well nourished General Appearance: cooperative and well developed HEENT normocephalic and head/scalp atraumatic Eyes PERRL and EOMs intact bilaterally Neck no lymphadenopathy Resp normal respiratory effort, normal air movement and clear to auscultation bilaterally Cardio regular rate, regular rhythm, S1 normal heart sound, S2 normal heart sound and no murmurs GI normal to inspection, nondistended, normoactive bowel sounds Extremity normal capillary refill Skin General Skin Exam: no breakdown Neuro CN's II-XII intact bilaterally Coordination / Balance: [id number] test normal and [id number] test normal Speech: speech normal Motor Exam: strength 5/5 throughout Psych thought process normal, cooperative and affect normal Results Lab / Micro Data Result Diagrams: 03/03/22 20:26 03/03/22 20:26 Labs: Laboratory Results - last 24 hr 03/03/22 20:25: POC Glucose 103 03/03/22 20:26: WBC 6.7, RBC 4.60, Hgb 14.8, Hct 44.5, MCV 96.7 H, MCH 32.2 H, MCHC 33.3, RDW Std Deviation 43.6, RDW Coeff of Silvana 12.3, Plt Count 187, MPV 9.7, Immature Gran % (Auto) 0.300, Neut % (Auto) 67.7, Lymph % (Auto) 12.6 L, [place] % (Auto) 16.6 H, Eos % (Auto) 2.2, Baso % (Auto) 0.6, Absolute Neuts (auto) 4.6, Absolute Lymphs (auto) 0.85, Nucleated RBC % 0 03/03/22 20:26: PT 14.1, INR 1.1, APTT 31.0 03/03/22 20:26: Sodium 139, Potassium 4.0, Chloride 105, Carbon Dioxide 29.0, Anion Gap 5, BUN 19 H, Creatinine 1.14, Estim Creat Clear Calc 57.67, Est GFR (MDRD) Af Amer 80, Est GFR (MDRD) Non-Af 66, BUN/Creatinine Ratio 16.7, Glucose 100, Calcium 8.9, Troponin I High Sens 7 Rhythm Strip Rhythm Strip: Sinus Rhythm Rate: 60 Ectopy: None Radiology Impression Brain CT 03/03/22 20:22 IMPRESSION: 1. Chronic involutional changes of the brain. 2. Chronic left mastoiditis. ASSESSMENT: ASPECTS ([place] Stroke Program Early CT Score) is 10. Critical finding called and case discussed. Electronically Signed: Jose Keene MD at 20:45 EDT , ADDENDUM: 03/03/222052 IMPRESSION: 1. Chronic involutional changes of the brain. 2. Chronic left mastoiditis. ASSESSMENT: ASPECTS ([place] Stroke Program Early CT Score) is 10. Critical finding called and case discussed. N.B. : The above Results were Read Back by Jose Keene MD to Gilberto Lewis MD, and understanding confirmed on 03/03/2022 20:46:29 (ET). Electronically Signed: Jose Keene MD at 20:45 EDT , Head/Neck CTA 03/03/22 20:22 IMPRESSION: 1. There are no acute findings of the right and left internal carotid artery. ALL ABOVE CRITERIA BY NASCET. 2. 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 ALL ABOVE CRITERIA BY NASCET. 3. There is calcified plaque formation of the left cavernous carotid artery, with a mild stenosis (less than 50%). ALL ABOVE CRITERIA BY NASCET. Electronically Signed: Jose Keene MD at 21:03 EDT , ADDENDUM: 03/03/222110 IMPRESSION: 1. There are no acute findings of the right and left internal carotid artery. ALL ABOVE CRITERIA BY NASCET. 2. 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 ALL ABOVE CRITERIA BY NASCET. 3. There is calcified plaque formation of the left cavernous carotid artery, with a mild stenosis (less than 50%). ALL ABOVE CRITERIA BY NASCET. N.B. : The above Results were Read Back by Jose Keene MD to Gilberto Lewis MD, and understanding confirmed on 03/03/2022 21:04:43 (ET). Electronically Signed: Jose Keene MD at 21:03 EDT , Chest X-Ray 03/03/22 21:07 IMPRESSION: There are no acute findings. Electronically Signed: Jose Keene MD at 21:30 EDT , Assessment & Plan Assessment/Plan (1) Acute ischemic vertebrobasilar artery cerebellar stroke: PLAN: Plan 1 suspected acute ischemic vertebrobasilar artery cerebellar stroke?admit pa tient to progressive care unit, start neurologic evaluations per routine protocol order MRI of head in a.m. patient has implanted posts postauricular but reports having had an MRI previously with them present (this will be up to radiology to confirm for safety of MRI). Continue aspirin per routine. PT to evaluate and assess patient for activities of daily living 2. DVT prophylaxis?low molecular weight heparin Charges/Coding Visit Charges Inpatient E&M: 94571 Init Hosp L3
[2022-03-04] VITALS (13 sets, daily range): BP systolic 116–132; BP diastolic 61–78; PULSE 53–76; RESP 14–18; TEMP 36.7–37.9; O2SAT 91–97; BMI 29.7
[2022-03-04 06:31] LABS: Absolute Lymphocyte Count 0.96 X10^3/uL (0.83-4.51); Absolute Neutrophil Count 3.5 X10^3/uL (2.0-7.7); Basophil# 0.03 X10^3/uL; Basophil% 0.5 % (0-1); Eosinophil# 0.19 X10^3/uL; Eosinophils% 3.4 % (0-5); Hematocrit 43.5 % (40-54); Hemoglobin 14.9 g/dL (13.0-16.5); Lymphocyte # 0.96 X10^3/ul (0.83-4.51); Mean Corp Hgb Conc 34.3 g/dL (32-36); Mean Corpuscular Hgb 32.9 pg (27.0-32.0); Monocyte# 0.93 X10^3/uL; Monocyte% 16.5 % (0-10); NRBC Flagged by Analyzer 0 % (0-5); Neutrophil # 3.52 X10^3/uL (2.7-7.7); Neutrophil % 62.4 % (47-70); Platelet Count 180 K/mm3 (150-450); RBC Distribution Width CV 12.3 % (11.6-14.6); RBC Distribution Width SD 43.8 fl (35.1-43.9); Red Blood Count 4.53 M/mm3 (4.6-6.2); White Blood Count 5.6 K/mm3 (4.4-11.0)
[2022-03-04 07:06] LABS: Anion Gap 5 (5-15); BUN 15 mg/dL (7-18); BUN/Creat Ratio 14.6 RATIO (10-20); Calcium,Total 8.7 mg/dL (8.5-10.1); Chloride 104 mmol/L (98-107); Cholesterol 103 mg/dL (200); Creatinine, Serum 1.03 mg/dL (0.70-1.30); EST Glomerular Filtration Rate 74 mL/min (>60); Est Glom Filt Rate - Afr Amer 90 mL/min (>60); Estimated Creatinine Clearance 63.83 ml/min; Glucose 98 mg/dL (74-106); High Density Lipoprotein 38 mg/dL; Potassium 3.7 mmol/L (3.5-5.1); Sodium Level 139 mmol/L (136-145); Triglycerides 54 mg/dL; Very Low Density Lipoprotein 11 mg/dL (5-40)
--- NOTE | 2022-03-04 07:25 | DCINST_ITS ---
Discharge Instructions Diet Discharge Diet: 2000 mg Sodium Diet Activity Discharge Activity: Return to Normal Activity and May Not Drive Weight Bearing Status: Weight bearing as tolerated Dressing / Incision Call your doctor if you observe: Fever of 101 or Higher, Coldness, Increased Pain, Numbness or Tingling, Change in Color, Inability to urinate, Inability to have a bowel movement, Shortness of breath, Dizziness, Fainting spells, Swelling in the ankles, Chest pain, Prolonged hiccupping, Increased palpitations (irregular heartbeat), Calf discomfort and Uncontrolled pain Follow Up Care Test Results: Test results from this visit will be discussed in further detail at your follow- up appointment, if applicable. Discharge Plan Admission Admit Date/Time: 03/03/22 21:42 Primary Reason for Your Visit: Left leg dyslipidemia Attending Provider: Venkat Cadena Primary Care Provider: Damon Heaton Consulting Providers: Sushil Munoz Discharge Orders/Prescriptions Prescriptions: No Action aspirin 81 mg Tablet PO Referrals / Follow Up: Damon Heaton DO [Primary Care Provider] -
--- NOTE | 2022-03-04 07:25 | PN.HOSP_ITS ---
Subjective Subjective Seen and examined Patient was admitted for loss of balance, sudden onset, drifting to the left side. No prior history of coronary artery disease, cardiac stent/PCI, PAD or stroke. Denies dizziness, vertigo, loss of hearing, tinnitus, language deficit, dysphonia or dysphagia. Objective Data Objective Data Vital Signs: Vital Signs Temp Pulse Resp BP Pulse Ox O2 Del Method 100.3 F H 67 16 118/78 96 Room Air 03/04/22 06:00 03/04/22 06:00 03/04/22 06:00 03/04/22 06:00 03/04/22 06:00 03/04/22 06:00 Oxygen Delivery Method Room Air Weight: 218 lb 14.704 oz Body Mass Index (BMI) 29.7 Intake & Output: Intake and Output for Last 24 Hours 03/02/22 03/03/22 03/04/22 23:59 23:59 23:59 Output Total 200 / 200 600 / 600 Balance -200 / -200 -600 / -600 Lab / Micro Data Result Diagrams: 03/04/22 05:20 03/04/22 05:20 Labs: Laboratory Results - last 24 hr 03/03/22 20:25: POC Glucose 103 03/03/22 20:26: WBC 6.7, RBC 4.60, Hgb 14.8, Hct 44.5, MCV 96.7 H, MCH 32.2 H, MCHC 33.3, RDW Std Deviation 43.6, RDW Coeff of Silvana 12.3, Plt Count 187, MPV 9.7, Immature Gran % (Auto) 0.300, Neut % (Auto) 67.7, Lymph % (Auto) 12.6 L, Mo no % (Auto) 16.6 H, Eos % (Auto) 2.2, Baso % (Auto) 0.6, Absolute Neuts (auto) 4.6, Absolute Lymphs (auto) 0.85, Nucleated RBC % 0 03/03/22 20:26: PT 14.1, INR 1.1, APTT 31.0 03/03/22 20:26: Sodium 139, Potassium 4.0, Chloride 105, Carbon Dioxide 29.0, Anion Gap 5, BUN 19 H, Creatinine 1.14, Estim Creat Clear Calc 57.67, Est GFR (MDRD) Af Amer 80, Est GFR (MDRD) Non-Af 66, BUN/Creatinine Ratio 16.7, Glucose 100, Calcium 8.9, Troponin I High Sens 7 03/04/22 05:20: WBC 5.6, RBC 4.53 L, Hgb 14.9, Hct 43.5, MCV 96.0 H, MCH 32.9 H, MCHC 34.3, RDW Std Deviation 43.8, RDW Coeff of Silvana 12.3, Plt Count 180, MPV 10.0, Immature Gran % (Auto) 0.200, Neut % (Auto) 62.4, Lymph % (Auto) 17.0 L, [place] % (Auto) 16.5 H, Eos % (Auto) 3.4, Baso % (Auto) 0.5, Absolute Neuts (auto) 3.5, Absolute Lymphs (auto) 0.96, Nucleated RBC % 0 03/04/22 05:20: Sodium 139, Potassium 3.7, Chloride 104, Carbon Dioxide 30.0, Anion Gap 5, BUN 15, Creatinine 1.03, Estim Creat Clear Calc 63.83, Est GFR (MDRD) Af Amer 90, Est GFR (MDRD) Non-Af 74, BUN/Creatinine Ratio 14.6, Glucose 98, Calcium 8.7, Triglycerides 54, Cholesterol 103, LDL Cholesterol 54, VLDL Cholesterol 11, HDL Cholesterol 38 L Radiography Diagnostic Testing: Radiology Impression Brain CT 03/03/22 20:22 IMPRESSION: 1. Chronic involutional changes of the brain. 2. Chronic left mastoiditis. ASSESSMENT: ASPECTS ([place] Stroke Program Early CT Score) is 10. Critical finding called and case discussed. Electronically Signed: Jose Keene MD at 20:45 EDT , ADDENDUM: 03/03/222052 IMPRESSION: 1. Chronic involutional changes of the brain. 2. Chronic left mastoiditis. ASSESSMENT: ASPECTS ([place] Stroke Program Early CT Score) is 10. Critical finding called and case discussed. N.B. : The above Results were Read Back by Jose Keene MD to Gilberto Lewis MD, and understanding confirmed on 03/03/2022 20:46:29 (ET). Electronically Signed: Jose Keene MD at 20:45 EDT , Head/Neck CTA 03/03/22 20:22 IMPRESSION: 1. There are no acute findings of the right and left internal carotid artery. ALL ABOVE CRITERIA BY NASCET. 2. 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 ALL ABOVE CRITERIA BY NASCET. 3. There is calcified plaque formation of the left cavernous carotid artery, with a mild stenosis (less than 50%). ALL ABOVE CRITERIA BY NASCET. Electronically Signed: Jose Keene MD at 21:03 EDT , ADDENDUM: 03/03/22 2111 IMPRESSION: 1. There are no acute findings of the right and left internal carotid artery. ALL ABOVE CRITERIA BY NASCET. 2. 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 ALL ABOVE CRITERIA BY NASCET. 3. There is calcified plaque formation of the left cavernous carotid artery, with a mild stenosis (less than 50%). ALL ABOVE CRITERIA BY NASCET. N.B. : The above Results were Read Back by Jose Keene MD to Gilberto Lewis MD, and understanding confirmed on 03/03/2022 21:04:43 (ET). Electronically Signed: Jose Keene MD at 21:03 EDT , Chest X-Ray 03/03/22 21:07 IMPRESSION: There are no acute findings. Electronically Signed: Jose Keene MD at 21:30 EDT , Rhythm Strip Rhythm Strip: Sinus Rhythm Rate: 60 Ectopy: None Physical Exam Narrative Physical exam General: Alert, Oriented x3, Cooperative HEENT: Atraumatic, PERRLA, EOMI, Normocephalic Oral: No Gingival or Mucosal Lesions/ Ulcerations Neck: Supple, No JVD, Negative Carotid Bruits Lungs: Air entry diminished in bilateral lung bases. No crepitation/rhonchi Cardiovascular: Regular rate, Regular Rhythm, Normal S1, Normal S2, No murmurs Abdomen: Bowel Sounds Present, Soft, Non Tender, Non-Distended : No renal angle tenderness. No suprapubic tenderness. Extremities: No edema, Capillary Refill Less than 3 Seconds Skin: No rashes, No breakdown Musculoskeletal: Bilateral TKR. Unsteady gait, ataxia. No Tenderness to Palpa tion of Joints or Extremities. Muscle strength 4/5 at LLE. Neurological: Cranial nerves II-XII grossly intact, DTR 2+/4. Finger-nose test and [id number] test negative. NIH 0 Psych/Mental Status: Normal Affect, Appropriate. Assessment & Plan Assessment/Plan (1) Acute ischemic vertebrobasilar artery cerebellar stroke: PLAN: Plan This 81-year-old question improvement was admitted to ER for difficulty walking while trying to get ready for . 1. Mild left lower extremity weakness, ataxia, etiology unclear: Patient is being admitted in PCU. No headache diplopia, blurry vision, language deficit dysarthria or dysphagia. No neck pain. No focal weakness paresthesia or numbness or tingling. CTA shows calcified plaque in the right and left cavernous carotid artery less than 50%. No acute finding of right and left ICA. Twelve-lead EKG sinus bradycardia at 56 bpm, QT [address] head no acute abnormality. Troponin normal. MRI brain does not show acute infarct. Fasting profile shows normal LDL 54, TG 54, TC 103, HDL 38. Glucose 98. PT note reviewed and patient has poor mobility, balance, strength, gait ataxia and needs further therapy. 2. DVT prophylaxis?low molecular weight heparin Laboratory Results 03/03/22 20:25: POC Glucose 103 03/03/22 20:26: WBC 6.7, RBC 4.60, Hgb 14.8, Hct 44.5, MCV 96.7 H, MCH 32.2 H, MCHC 33.3, RDW Std Deviation 43.6, RDW Coeff of Silvana 12.3, Plt Count 187, MPV 9.7, Immature Gran % (Auto) 0.300, Neut % (Auto) 67.7, Lymph % (Auto) 12.6 L, [place] % (Auto) 16.6 H, Eos % (Auto) 2.2, Baso % (Auto) 0.6, Absolute Neuts (auto) 4.6, Absolute Lymphs (auto) 0.85, Nucleated RBC % 0 03/03/22 20:26: PT 14.1, INR 1.1, APTT 31.0 03/03/22 20:26: Sodium 139, Potassium 4.0, Chloride 105, Carbon Dioxide 29.0, Anion Gap 5, BUN 19 H, Creatinine 1.14, Estim Creat Clear Calc 57.67, Est GFR (MDRD) Af Amer 80, Est GFR (MDRD) Non-Af 66, BUN/Creatinine Ratio 16.7, Glucose 100, Calcium 8.9, Troponin I High Sens 7 03/04/22 05:20: WBC 5.6, RBC 4.53 L, Hgb 14.9, Hct 43.5, MCV 96.0 H, MCH 32.9 H, MCHC 34.3, RDW Std Deviation 43.8, RDW Coeff of Silvana 12.3, Plt Count 180, MPV 10.0, Immature Gran % (Auto) 0.200, Neut % (Auto) 62.4, Lymph % (Auto) 17.0 L, [place] % (Auto) 16.5 H, Eos % (Auto) 3.4, Baso % (Auto) 0.5, Absolute Neuts (auto) 3.5, Absolute Lymphs (auto) 0.96, Nucleated RBC % 0 03/04/22 05:20: Sodium 139, Potassium 3.7, Chloride 104, Carbon Dioxide 30.0, Anion Gap 5, BUN 15, Creatinine 1.03, Estim Creat Clear Calc 63.83, Est GFR (MDRD) Af Amer 90, Est GFR (MDRD) Non-Af 74, BUN/Creatinine Ratio 14.6, Glucose 98, Calcium 8.7, Triglycerides 54, Cholesterol 103, LDL Cholesterol 54, VLDL Cholesterol 11, HDL Cholesterol 38 L 03/04/22 05:20: TSH 0.93 Charges/Coding Visit Charges Inpatient E&M: 52378 Subs Hosp L2
[2022-03-04 07:57] LABS: Thyroid Stim Hormone (TSH) 0.93 uIU/mL (0.358-3.74)
[2022-03-04] MEDS: LORazepam 2 MG/ML Syringe 1 MG IV (09:15)
[2022-03-04] MEDS: Aspirin 81 MG TAB.CHEW PO (09:18)
--- NOTE | 2022-03-04 09:54 | MRI_ITS ---
STUDY: MRI BRAIN WITHOUT CONTRAST REASON FOR EXAM: Male, 81 years old. cva -- has post auricular bolts/post for hearing implant TECHNIQUE: Standardized multiplanar fat and water weighted pulse sequences were obtained. COMPARISON: None. FINDINGS: No evidence of restricted diffusion visualized, the ADC map is unremarkable, no evidence of signal dropout on the gradient echo sequence to suggest chronic microvascular insults. No evidence of parenchymal hemorrhages or contusions. No evidence of intra or extra-axial fluid collection is seen. Prominence of the ventricles and extra-axial spaces unremarkable for the patient''s age. Normal bilateral basal ganglia. Normal thalami. There is no extra-axial fluid accumulation. Normal flow voids within the major intracranial circulation suggesting patency by spin echo criteria. Normal sella turcica, pituitary gland, infundibular stalk, optic chiasm and hypothalamus. Normal tectal plate and pineal gland. Normal midbrain, ambrocio and medulla. Normal cerebellum. Normal basal cisterns. Normal bilateral temporal bones. Normal bilateral internal auditory canals. No demonstrated orbital abnormality, within the constraints of a routine brain study. Circumferential mucosal disease visualized in the paranasal sinuses most prominent in the ethmoid air cells. T2 prolongation visualized within the left mastoid air cells. Normal calvarium and skull base. Normal visualized soft tissue structures. Normal visualized upper cervical spine. MRI/Brain without Contrast IMPRESSION: No evidence of acute intracranial pathology is seen. Electronically Signed: Abdirahman Cummings MD at 11:07 EDT ,
--- NOTE | 2022-03-04 11:20 | CASEMGMT ---
KAVYA HASTINGS Face to Face with patient for initial transition planning/care coordination assessment. KAVYA HASTINGS introduced self and role at [facility]. Patient lying in bed, alert and oriented, daughter and significant other at bedside. Patient willing to participate in assessment and is able to answer all questions appropriately. Care providers, pharmacy, and demographics verified. Patient wishes to discharge home, KAVYA HASTINGS dicussed progress with therapy and recommendations for Rehab Unit. Patient and agreeable to Rehab Unit. Patient and provided with list of Rehab Units and SNF with Medicare Ratings and quality measures. Patient prefers [facility]. Patient states he has no further needs or concerns at this time. CM to follow for discharge planning needs that may arise. PCP: Sudarshan Specialists: none Preferred Pharmacy: [email or web address] [place] Insurance: Shelbi WORLEY Prescription Benefit: yes Living Will/HPOA: yes, Tamra Swenson LNOK: Living Arrangements: Patient lives with in a single story home with 3 steps and railing to enter the home. Patient states he was independent prior to current hospitalization Transportation: self, DME/HHC: Patient states he has shower chair, raised toilet, cane, walker at home. No previous HHC or SNF. KAVYA HASTINGS called and made referral to [facility] Rehab Unit. Per Shira, will review clinical information and will update if they are able to accept. Disposition Plan: [facility] Rehab Unit Kesha BETANCUR, RN, CM
--- NOTE | 2022-03-04 13:34 | TELEMED_ITS ---
[facility] Telemed has confirmed receipt of a request for visit. This document confirms receipt of the order initiating the consult. To find the results of the consultation, please view the patient's reports for the scanned Telemed Consult.
--- NOTE | 2022-03-04 16:39 | CASEMGMT ---
Social Work Note SW updated that pt has been accepted to and can discharge to tomorrow. Plan: Thursday Kesha Yarbrough ANIME DESIGNER, LINE APPLIANCE ASSEMBLER
[2022-03-05] VITALS (7 sets, daily range): BP systolic 140–143; BP diastolic 84–87; PULSE 56–72; RESP 12–20; TEMP 36.6–37.7; O2SAT 91–95; BMI 29.7
--- NOTE | 2022-03-05 09:47 | CASEMGMT ---
Social Work Note SW did not complete PHQ-9 as pt's MRI is negative. Kesha Yarbrough UNHAIRER, CARRIER BLOWER
[2022-03-05] MEDS: Aspirin 81 MG TAB.CHEW PO (10:17)
--- NOTE | 2022-03-05 10:46 | CASEMGMT ---
Social Work Note SW updated physician that pt can discharge to [facility] when medically cleared. Kesha Yarrbough DRYWALL SANDER, MACHINE CUTTER
--- NOTE | 2022-03-05 11:00 | DCINST_ITS ---
Discharge Instructions Diet Discharge Diet: 2000 mg Sodium Diet Activity Discharge Activity: May Not Drive Dressing / Incision Call your doctor if you observe: Fever of 101 or Higher, Coldness, Increased Pain, Numbness or Tingling, Inability to urinate, Inability to have a bowel movement, Shortness of breath, Dizziness, Fainting spells, Swelling in the ankles, Chest pain, Prolonged hiccupping, Increased palpitations (irregular heartbeat), Calf discomfort and Uncontrolled pain Follow Up Care Test Results: Test results from this visit will be discussed in further detail at your follow- up appointment, if applicable. Discharge Plan Admission Admit Date/Time: 03/03/22 21:42 Primary Reason for Your Visit: Left leg disequilibrium, possible neuropathy Attending Provider: Venkat Cadena Primary Care Provider: Damon Heaton Consulting Providers: Sushil Munoz Instructions Additional Instructions / Restrictions: [facility] neurology suggested outpatient MRI thoracic spine and lumbar spine. Discharge Orders/Prescriptions Prescriptions: New clopidogrel [Plavix] 75 mg tablet 75 mg PO DAILY Qty: 21 0RF atorvastatin 40 mg tablet 40 mg PO QHS Qty: 30 1RF lisinopril 5 mg tablet 5 mg PO DAILY Qty: 30 0RF Continued aspirin 81 mg Tablet 81 mg PO DAILY Referrals / Follow Up: Damon Heaton DO [Primary Care Provider] - Robert Ornelas MD [NON-STAFF] - Within 2 Weeks (For left leg dyslipidemia, gait instability possible neuropathy.) Disposition Disposition (needs filled in before D/C Order can be placed): Inpatient Rehab Unit/Facility
--- NOTE | 2022-03-05 11:28 | DS.PCM_ITS ---
Providers Date of Admission: 03/03/22 Date of Discharge: 03/05/22 Primary Care Physician: Dr. Damon Heaton DO Reason For Visit: SUSPECTED CEREBELLAR STROKE Diagnosis Discharge Diagnosis (1) Acute ischemic vertebrobasilar artery cerebellar stroke: Status: Acute Code(s): I63.29 - Cerebral infarction due to unspecified occlusion or stenosis of other precerebral arteries Plan This 81-year-old question improvement was admitted to ER for difficulty walking while trying to get ready for . 1. Mild left lower extremity weakness, ataxia, etiology unclear: Patient is being admitted in PCU. No headache diplopia, blurry vision, language deficit dysarthria or dysphagia. No neck pain. No focal weakness paresthesia or numbness or tingling. CTA shows calcified plaque in the right and left ca vernous carotid artery less than 50%. No acute finding of right and left ICA. Twelve-lead EKG sinus bradycardia at 56 bpm, QT [address] head no acute abnormality. Troponin normal. MRI brain does not show acute infarct. Fasting profile shows normal LDL 54, TG 54, TC 103, HDL 38. Glucose 98. PT note reviewed and patient has poor mobility, balance, strength, gait ataxia and needs further therapy. 2. DVT prophylaxis?low molecular weight heparin Laboratory Results 03/03/22 20:25: POC Glucose 103 03/03/22 20:26: WBC 6.7, RBC 4.60, Hgb 14.8, Hct 44.5, MCV 96.7 H, MCH 32.2 H, MCHC 33.3, RDW Std Deviation 43.6, RDW Coeff of Silvana 12.3, Plt Count 187, MPV 9.7, Immature Gran % (Auto) 0.300, Neut % (Auto) 67.7, Lymph % (Auto) 12.6 L, [place] % (Auto) 16.6 H, Eos % (Auto) 2.2, Baso % (Auto) 0.6, Absolute Neuts (auto) 4.6, Absolute Lymphs (auto) 0.85, Nucleated RBC % 0 03/03/22 20:26: PT 14.1, INR 1.1, APTT 31.0 03/03/22 20:26: Sodium 139, Potassium 4.0, Chloride 105, Carbon Dioxide 29.0, A nion Gap 5, BUN 19 H, Creatinine 1.14, Estim Creat Clear Calc 57.67, Est GFR (MDRD) Af Amer 80, Est GFR (MDRD) Non-Af 66, BUN/Creatinine Ratio 16.7, Glucose 100, Calcium 8.9, Troponin I High Sens 7 03/04/22 05:20: WBC 5.6, RBC 4.53 L, Hgb 14.9, Hct 43.5, MCV 96.0 H, MCH 32.9 H, MCHC 34.3, RDW Std Deviation 43.8, RDW Coeff of Silvana 12.3, Plt Count 180, MPV 10.0, Immature Gran % (Auto) 0.200, Neut % (Auto) 62.4, Lymph % (Auto) 17.0 L, [place] % (Auto) 16.5 H, Eos % (Auto) 3.4, Baso % (Auto) 0.5, Absolute Neuts (auto) 3.5, Absolute Lymphs (auto) 0.96, Nucleated RBC % 0 03/04/22 05:20: Sodium 139, Potassium 3.7, Chloride 104, Carbon Dioxide 30.0, Anion Gap 5, BUN 15, Creatinine 1.03, Estim Creat Clear Calc 63.83, Est GFR (MDRD) Af Amer 90, Est GFR (MDRD) Non-Af 74, BUN/Creatinine Ratio 14.6, Glucose 98, Calcium 8.7, Triglycerides 54, Cholesterol 103, LDL Cholesterol 54, VLDL Cholesterol 11, HDL Cholesterol 38 L 03/04/22 05:20: TSH 0.93 Medications at Discharge Home Medications aspirin 81 mg tablet 81 mg PO DAILY [facility] 03/03/22 atorvastatin 40 mg tablet 40 mg PO QHS #30 tabs 03/05/22 clopidogrel 75 mg tablet (Plavix) 75 mg PO DAILY #21 tabs 03/05/22 lisinopril 5 mg tablet 5 mg PO DAILY #30 tabs 03/05/22 Hospital Course Summary of Care Provided Hospital Course: This 81-year-old question improvement was admitted to ER for difficulty walking while trying to get ready for .? 1.? Mild left lower extremity weakness, ataxia, etiology unclear: Patient is being admitted in PCU. No headache diplopia, blurry vision, language deficit dysarthria or dysphagia.? No neck pain.? No focal weakness paresthesia or numbness or tingling.? CTA shows calcified plaque in the right and left cavernous carotid artery less than 50%.? No acute finding of right and left ICA.? Twelve-lead EKG sinus bradycardia at 56 bpm, QT [address] head no acute abnormality.? Troponin normal.? MRI brain does not show acute infarct.? Fasting profile shows normal LDL 54, TG 54, TC 103, HDL 38.? Glucose 98. Discussed with [facility] neurologist in his opinion that 15 to 20% MRI brain is false negative. Continue baby aspirin. Plavix 75 mg daily for 3 weeks, high intensity statin, atorvastatin 40 mg daily. Suggested MRI lumbar and thoracic spine as an outpatient. Discussed with my colleague Dr. Elias, acute rehab. Patient is being discharged to acute rehab. PT note reviewed and patient has poor mobility, balance, strength, gait ataxia and needs further therapy. 2.? Undiagnosed hypertension: Lisinopril 5 mg daily. Needs outpatient monitoring of blood pressure in ideal situation. 3. DVT prophylaxis?low molecular weight heparin Discharge medication reconciliation done. Discharge follow-up instructions completed. Discharge process discussed with the patient and all questions were answered to patient's satisfaction. Total time spent, exact 35 minutes on discharge meds reconciliation, examination, coordination of care with nurses and ancillary staff, review of imaging and blood test and discussion with the patient on follow-up instructions. Physical Exam Narrative Physical exam General: Alert, Oriented x3, Cooperative HEENT: Left inner ear pathology, hearing loss in left ear. Atraumatic, PERRLA, EOMI, Normocephalic Oral: No Gingival or Mucosal Lesions/ Ulcerations Neck: Supple, No JVD, Negative Carotid Bruits Lungs: Air entry diminished in bilateral lung bases. No crepitation/rhonchi Cardiovascular: Regular rate, Regular Rhythm, Normal S1, Normal S2, No murmurs Abdomen: Bowel Sounds Present, Soft, Non Tender, Non-Distended : No renal angle tenderness. No suprapubic tenderness. Extremities: No edema, Capillary Refill Less than 3 Seconds Skin: No rashes, No breakdown Musculoskeletal: Bilateral TKR. No ataxia or disequilibrium noticed. No Tenderness to Palpation of Joints or Extremities. Muscle strength 5/5 at LLE. Neurological: Cranial nerves II-XII grossly intact, DTR 2+/4. Finger-nose test and [id number] test negative. NIH 0 Psych/Mental Status: Normal Affect, Appropriate. Weight / BMI Weight Weight: 218 lb 14.704 oz Body Mass Index (BMI) 29.7 ABG / Lab / Microbiology Data Result Diagrams: 03/04/22 05:20 03/04/22 05:20 D/C Instructions Discharge Diet: 2000 mg Sodium Diet Call your doctor if you observe: Fever of 101 or Higher, Coldness, Increased Pain, Numbness or Tingling, Inability to urinate, Inability to have a bowel movement, Shortness of breath, Dizziness, Fainting spells, Swelling in the ankles, Chest pain, Prolonged hiccupping, Increased palpitations (irregular heartbeat), Calf discomfort and Uncontrolled pain Meaningful Use Info Meaningful Use Diagnoses (Choose all that apply): None applicable Discharge Plan Admission Admit Date/Time: 03/03/22 21:42 Primary Reason for Your Visit: Left leg disequilibrium, possible neuropathy Attending Provider: Venkat Cadena Primary Care Provider: Damon Heaton Consulting Providers: Sushil Munoz Instructions Additional Instructions / Restrictions: [facility] neurology suggested outpatient MRI thoracic spine and lumbar spine. Discharge Orders/Prescriptions Prescriptions: New clopidogrel [Plavix] 75 mg tablet 75 mg PO DAILY Qty: 21 0RF atorvastatin 40 mg tablet 40 mg PO QHS Qty: 30 1RF lisinopril 5 mg tablet 5 mg PO DAILY Qty: 30 0RF Continued aspirin 81 mg Tablet 81 mg PO DAILY Referrals / Follow Up: Damon Heaton DO [Primary Care Provider] - Robert Ornelas MD [NON-STAFF] - Within 2 Weeks (For left leg dyslipidemia, gait instability possible neuropathy.) Disposition Disposition (needs filled in before D/C Order can be placed): Inpatient Rehab Unit/Facility Charges/Coding Visit Charges Inpatient E&M: 50619 Disch Hosp
--- NOTE | 2022-03-05 14:42 | PHA.DC.MR ---
Pharmacy Service has performed discharge medication reconciliation for this patient. The patient's discharge medication list was reviewed for discrepancies and discrepancies were resolved. Home Medications aspirin 81 mg tablet [address] [facility] 03/03/22 atorvastatin 40 mg tablet 40 mg PO QHS #30 tabs 03/05/22 clopidogrel 75 mg tablet (Plavix) 75 mg PO DAILY #21 tabs 03/05/22 lisinopril 5 mg tablet 5 mg PO DAILY #30 tabs 03/05/22
== END 2022-03-05 14:08 | DRG 93 ==
LOC: ED 21:03 → PCU 22:10
PROVIDERS: Admitting Provider Family Medicine; Emergency Provider Emergency Medicine; PCP Student in an Organized Health Care Education/Training Program; Visit Provider Internal Medicine
DX: R26.0 Ataxic gait (principal); G83.14 Monoplegia of lower limb affecting left nondominant side; R26.2 Difficulty in walking, not elsewhere classified; I10 Essential (primary) hypertension; Z79.82 Long term (current) use of aspirin; Z96.653 Presence of artificial knee joint, bilateral
CPT/HCPCS: 36415; 70450; 70496; 70498; 70551; 71045; 80048; 80061; 82962; 84443; 84484; 85025; 85610; 85730; 92610; 93005; 94762; 97162; 97166; 99285; Q9967; A4216

== ENCOUNTER 2022-03-05 14:15 | Inpatient (IN) | payer MEDICARE, OTHER, SELFPAY ==
[2022-03-05 14:26] VITALS: BP 147/72; PULSE 64; RESP 16; TEMP 37; O2SAT 92; BMI 28.1
[2022-03-05] MEDS: Clopidogrel Bisulfate 75 MG Tablet PO (15:47)
[2022-03-05] MEDS: Lisinopril 5 MG Tablet PO (15:48)
--- NOTE | 2022-03-05 18:01 | HP.PCM_ITS ---
HPI - General General Date of Admission: 03/05/22 Date of Service: 03/05/22 Chief Complaint: Post stroke debility HPI Narrative JORDI NIELSON, is a 81 YO M with no significant PMH and on no prescribed medications who presented to the ED at [facility] on 03/03/2022 complaining of difficulty ambulating. A noncontrast CT brain was negative for any acute findings but showed chronic left mastoiditis. CTA of the head and neck showed calcified pl aque formation of the right cavernous carotid artery with mild stenosis, less than 50%. There was also mild stenosis, less than 50%, of the left cavernous carotid artery. There were no acute findings. MRI of the brain was interpreted by radiology as no evidence of acute intracranial pathology. Consult with [facility] teleneurology was ordered and the patient had video conferencing on 03/05/2022. The NIH score was 0. Patient has persistent gait disturbance and the neurologist mention that a noncontrast MRI brain can have false negative and up to one third of cases particularly when the NIH score is less than 4 and with brainstem infarctions. He recommended dual antiplatelet agents for 21 days and then stop aspirin. He also recommended initiating a statin and consideration for MRI scans of the thoracic and lumbosacral spine and follow up with neurology in person. Review of his lab shows a total cholesterol of 103 and triglycerides of 54. The LDL is 54 and the HDL is low at 38. A TSH was normal. He is not a smoker. He was on no prescribed medications at the time of presentation to the emergency department. He was seen by PT/OT for ataxia and transfer to acute rehab was recommended. He was transferred to the acute rehab unit at [facility] on 03/05/2022 for 3 hours of therapy daily to restore function/independence at or near his level prior to the recent event. [facility] Medical History (Updated 03/06/22 @ 12:[address] 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 Thaddeus Green. He denies pain in the ear, discharge from the ear and pain posterior to the ear. He goes to see Dr. Ontiveros regularly to clean the ear due to wax build up. Has not been swimming lately or had water in his ear from the shower recently. He denies vertigo/dizziness. ; Denies abnormal hearing, dysphagia, ear pain, headache(s), loss taste/smell, nasal congestion, nasal discharge, sinus pain or sore throat Cardiovascular Cardiovascular: Denies chest pain, dyspnea on exertion, edema, lightheadedness, orthopnea, palpitations, paroxysmal nocturnal dyspnea or syncope Respiratory/Chest Respiratory/Chest: Denies cough, dyspnea, shortness of breath at rest, shortness of breath with exertion or wheezing Gastrointestinal Gastrointestinal: Denies abdominal pain, constipation, diarrhea, dyspepsia, hematemesis, hematochezia, nausea or vomiting Genitourinary Genitourinary: Denies dysuria, hematuria, nocturia, urinary frequency, urinary hesitancy, urinary incontinence or urinary urgency Musculoskeletal Musculoskeletal: Denies back pain, joint pain, joint swelling or neck pain Neurologic Neurologic: Denies confusion, disequilibrium, dizziness, focal weakness, headac he(s), paresthesias, seizures or tremor(s) Psychiatric Psychiatric: Denies anxiety, depression, homicidal ideation or suicidal ideation Endocrine Endocrinology: Denies change in body appearance, polydipsia or polyuria Hematologic/Lymphatic Hematologic/Lymphatic: Denies easy bleeding, easy bruising or lymphadenopathy Allergic/Immunologic Allergic/Immunologic: Denies rhinitis, eczemia or asthma Vital Signs Vital Signs Vital Signs: 03/05/22 14:26 03/05/22 16:00 Temperature 98.6 F Temperature Source Oral Pulse Rate 64 Respiratory Rate 16 Respiratory Effort Normal Non-Labored Respiratory Depth Normal Respiratory Pattern Normal Blood Pressure 147/72 H Blood Pressure Mean 97 Blood Pressure Source Monitor Blood Pressure Position Semi-Fowlers Blood Pressure Location Right Arm Pulse Ox 92 Oxygen Delivery Method Room Air Room Air Weight Weight: 213 lb 2.992 oz Body Mass Index (BMI) 28.1 Indicators for Scoring Admitted with or Primary Diagnosis of CVA/Stroke: Yes Hx of CVA/Stroke: No Modified Cindy Score MRS Score at time of Evaluation: 0-No symptoms at all NIHSS NIHSS 1a. Level of Consciousness: Alert; keenly responsive 1b. LOC Questions: Answers BOTH questions correctly. 1c. LOC Commands: Performs both tasks correctly. 2. Best Gaze: Normal 3. Visual: No visual loss 4. Facial Palsy: Normal symmetrical movements 5a. Left Arm: No drift; arm holds 90 (or 45) degrees for full 10 seconds 5b. Right Arm: No drift; arm holds 90 (or 45) degrees for full 10 seconds 6a. Left Leg: No drift; leg holds 30-degree position for full 5 seconds 6b. Right Leg: No drift; leg holds 30-degree position for full 5 seconds 7. Limb Ataxia: Absent 8. Sensory: Normal; no sensory loss 9. Best Language: No aphasia; normal 10. Dysarthria: Normal 11. Extinction and Inattention: No abnormality Total: 0 Stroke Questions Stroke Team Activated: No (he is in rehab and his sx have completely resolved) Physical Exam Const alert, no apparent distress and well nourished General Appearance: cooperative and well developed Orientation / Consciousness: Negative for confused HEENT normocephalic, head/scalp atraumatic, moist oral mucous membranes and oropharynx normal HEENT Narrative: Cochlear implant is present behind the Left ear. It is not mentioned on the CT or MRI reports. He has no pain with percussion over the Left mastoid. Head and Scalp: normal to inspection Face and Sinus: sinuses nontender, face symmetric and sinus tenderness; Negative for flattened naso-labial fold External Ear: no preauricular adenopathy External Auditory Canal: other Other Details: The external canal has a circumferential growth close to the TM. It does not appear to be wax. I can visualize a very small area in the center of the TM that appears normal but, the majority of the TM is not visible due to the growth. there was no DC present and there is no erythema visualized in the canal proximal to the mass. He has no pain with traction on the auricle. No pain with percussion over the left mastoid. Eyes PERRL and EOMs intact bilaterally Neck no lymphadenopathy and supple General: trachea midline Resp normal respiratory effort, normal air movement and clear to auscultation bilaterally Resp Narrative: Speaking in complete sentences with no shortness of breath. Effort and Inspection: Negative for tachypneic Cardio regular rate, regular rhythm, S1 normal heart sound, S2 normal heart sound and no gallops GI normal to inspection, nondistended, normoactive bowel sounds, soft to palpation and non-tender Extremity no clubbing, cyanosis or edema and no calf tenderness Skin General Skin Exam: no breakdown Rashes: no rashes Neuro CN's II-XII intact bilaterally, no focal motor deficits and no sensory deficits noted Neuro Narrative: Negative romberg Coordination / Balance: [id number] test normal and [id number] test normal Speech: speech normal Psych thought process normal, cooperative and affect normal Assessment & Plan Assessment/Plan (1) Ataxia: PLAN: This has completely resolved. 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 I suspect the dysequilibrium and the leaning to the left is related to the cochlear implant. Possibly due to mast oiditis? D/W Dr. Ontiveros and he will schedule an office appt in the very near future to evaluate. (3) Cochlear implant in place: (4) Chronic mastoiditis of left side: PLAN: Plan PLAN PT for gait stability OT for ADL's Analgesics as needed Bowel protocol Fall precautions Assess for Anxiety/Depression GI prophylaxis-not indicated at this time DVT prophylaxis with Lovenox Follow up with Dr. Thaddeus nOtiveros and PCP, Dr. Heaton, following DC from IP Rehab Plan on DC 03/07/22 home. He is asymptomatic now and I discussed with the therapists and they agree DC is appropriate at this time. IF Dr. Ontiveros does not feel the implant is contributing to his recurring sx then he will keep the appt with Dr. Ever Akers, neurology, in May. Charges/Coding Visit Charges Inpatient E&M: 65662 Init Hosp L2
[2022-03-05 20:43] VITALS: BP 108/75; PULSE 62; RESP 20; TEMP 37.2; O2SAT 95
[2022-03-05] MEDS: Atorvastatin Calcium 40 MG Tablet PO (20:51)
[2022-03-06] MEDS: Enoxaparin 40 MG/0.4 ML Syringe SC (06:23)
[2022-03-06 09:05] VITALS: BP 138/78; PULSE 56; RESP 16; TEMP 37.3; O2SAT 94
[2022-03-06] MEDS: Aspirin 81 MG TAB.CHEW PO (09:07)
[2022-03-06] MEDS: Clopidogrel Bisulfate 75 MG Tablet PO (09:07)
[2022-03-06] MEDS: Senna/Docusate Sodium 1 Tablet 2 TABLET PO (09:07)
[2022-03-06] MEDS: Lisinopril 5 MG Tablet PO (09:07)
--- NOTE | 2022-03-06 14:05 | CASEMGMT ---
Social Work Team meeting held. Patient present. Patient attempted to call patient spouse on phone, did not answer. Patient to discharge to home on 03/07/[address] Elias recommendation. Patient is agreeable to discharge and returning to home with spouse. Dr. Elias to call patient spouse later today to touch base to confirm discharge plan. Patient reports to have all needed DME and therapy is not recommending any further therapy for patient. Team able to answer patient questions. Proposed discharge date: 03/07/2022 PLAN: Discharge to home with spouse. Angelica CHOW, CAMILA
--- NOTE | 2022-03-06 14:29 | CASEMGMT ---
Social Work See attached assessment for complete details. This elementary school social worker met with patient in room. Introduced self and elementary school social worker role. Patient agreeable to talk to this elementary school social worker. Patient plans to discharge to home with spouse. This elementary school social worker educated patient on Medicare benefits, patient voiced understanding. Will continue to follow. Angelica CHOW, CAMILA
[2022-03-06 19:51] VITALS: BP 127/75; PULSE 48; RESP 20; TEMP 36.9; O2SAT 96
[2022-03-06] MEDS: Atorvastatin Calcium 40 MG Tablet PO (20:14)
[2022-03-07] MEDS: Enoxaparin 40 MG/0.4 ML Syringe SC (05:37)
[2022-03-07 07:38] VITALS: BP 132/86; PULSE 54; RESP 16; TEMP 36.6; O2SAT 96
[2022-03-07] MEDS: Aspirin 81 MG TAB.CHEW PO (09:44)
[2022-03-07] MEDS: Lisinopril 5 MG Tablet PO (09:44)
[2022-03-07] MEDS: Clopidogrel Bisulfate 75 MG Tablet PO (09:44)
--- NOTE | 2022-03-07 09:59 | DCINST_ITS ---
Discharge Instructions Diet Discharge Diet: No restrictions Activity Discharge Activity: Return to Normal Activity May resume sexual activity in: No Restrictions Weight Bearing Status: Full weight bearing Dressing / Incision Call your doctor if you observe: Fever of 101 or Higher, Numbness or Tingling, Dizziness, Fainting spells, Chest pain, Increased palpitations (irregular he artbeat), Calf discomfort and - (any recurrence of the dyseuilibrium and leaning to the left or numbness/weakness on one side and not the other or sluured speech, inability to get your words out, facial droop. ) Follow Up Care Please Follow Up With: Ever Akers MD Test Results: Test results from this visit will be discussed in further detail at your follow- up appointment, if applicable. Pending Tests Upon Discharge: none Discharge Plan Admission Admit Date/Time: 03/05/22 14:15 Primary Reason for Your Visit: dysequilibrium and ataxia. Attending Provider: Aarti Elias Primary Care Provider: Damon Heaton Instructions Additional Instructions / Restrictions: 1. I do not think you had a stroke. Stroke symptoms do not suddenly go away over night, enrique when they are as bad as what you experienced. I suspect the cause of the recurring difficulty walking and leaning to the left is related to the cochlear implant. Dr. Ontiveros is going to follow up with you. I could only see a tiny part of the eardrum when I looked in your ear and he can look with a microscope in the office and do a better exam. 2. The goal for the LDL, bad cholesterol, in a patient with a stroke is 70 or less and your LDL is 53 even prior to the lipid-lowering drug. I personally would not take atorvastatin at this point because I do not believe you had a stroke. If you feel strongly that you want to take the atorvastatin I will write a prescription you just need to let me know. I also do not think you need Plavix but do recommend that you stay on 1 baby aspirin daily. Your blood pressure has been mildly elevated at times but this may be related to anxiety and fear that you had a stroke. You may be able to get off the antihy pertensive, lisinopril, in the future and I would discuss this with Dr. Heaton. 3. If Dr. Ontiveros does not feel your symptoms are related to the cochlear implant then you should keep the appt with the neurologist, Dr. Ever Akers that has been scheduled for you in May. 4. STROKE WARNING SIGNS: If you have any of these symptoms go straight to the ER. 1. Sudden numbness or weakness of the face, arm or leg especially if on one side of the body only 2. Sudden confusion, trouble speaking or understanding speech 3. Sudden trouble seeing in 1 eye or both eyes 4. Sudden trouble walking, dizziness, loss of balance or incoordination 5. Sudden severe headache with no known cause 5. Follow up with Dr. Heaton. 6. If you have any questions after you leave rehab please do not hesitate to call me. Office: [phone] Discharge Orders/Prescriptions Prescriptions: Continued aspirin 81 mg Tablet 81 mg PO DAILY lisinopril 5 mg tablet 5 mg PO DAILY Qty: 30 0RF Discontinued clopidogrel [Plavix] 75 mg tablet 75 mg PO DAILY Qty: 21 0RF atorvastatin 40 mg tablet 40 mg PO QHS Qty: 30 1RF Referrals / Follow Up: DR EVER AKERS [Other] - 05/19/22 1:00 pm Damon Heaton DO [Primary Care Provider] - Thaddeus Ontiveros MD [Med Staff - Active Staff] - 03/13/22 8:00 am Robert Ornelas MD [NON-STAFF] - 07/31/22 9:00 am Disposition Disposition (needs filled in before D/C Order can be placed): Home, Self Care
--- NOTE | 2022-03-07 10:13 | PCM.DC.SUM ---
Providers Date of Admission: 03/05/22 Date of Discharge: 03/07/22 Primary Care Physician: Dr. Damon Heaton, Reason For Visit: DEBILITY Diagnosis Discharge Diagnosis (1) Ataxia: Status: Acute Code(s): R27.0 - Ataxia, unspecified Plan: This has completely resolved. I suspect the recurrent episodes of dysequilibrium and falling to the left are due to a problem related to the cochlear implant (2) Acute ischemic vertebrobasilar artery cerebellar stroke: Status: Acute Code(s): I63.29 - Cerebral infarction due to unspecified occlusion or stenosis of other precerebral arteries Plan: I do not believe he had a stroke. I suspect the dysequilibrium and the leaning to the left is related to the cochlear implant. Possibly due to mastoiditis? D/W Dr. Ontiveros and he will schedule an office appt in the very near future to evaluate. (3) Cochlear implant in place: Status: Acute Code(s): Z96.21 - Cochlear implant status (4) Chronic mastoiditis of left side: Status: Chronic Code(s): H70.12 - Chronic mastoiditis, left ear Plan PLAN PT for gait stability OT for ADL's Analgesics as needed Bowel protocol Fall precautions Assess for Anxiety/Depression GI prophylaxis-not indicated at this time DVT prophylaxis with Lovenox Follow up with Dr. Thaddeus Ontiveros and PCP, Dr. Heaton, following DC from IP Rehab Plan on DC 03/07/22 home. He is asymptomatic now and I discussed with the therapists and they agree DC is appropriate at this time. IF Dr. Ontiveros does not feel the implant is contributing to his recurring sx then he will keep the appt with Dr. Ever Akers, neurology, in May. Medications at Discharge Home Medications aspirin 81 mg tablet 81 mg PO DAILY heart health 03/03/22 lisinopril 5 mg tablet 5 mg PO DAILY #30 tabs 03/07/22 Hospital Course Operations None Procedures None Summary of Care Provided Minutes Spent on Discharge: 30 Hospital Course: JORDI NIELSON, is a 81 YO M with no significant PMH other than implantation of a cochlear implant in the past and on no prescribed medications who presented to the ED at [facility] on 03/03/2022 complaining of difficulty ambulating.? A noncontrast CT brain was negative for any acute findings but showed chronic left mastoiditis.? CTA of the head and neck showed calcified plaque formation of the right cavernous carotid artery with mild stenosis, less than 50%.? There was also mild stenosis, less than 50%, of the left cavernous carotid artery.? There were no acute findings.? MRI of the brain was interpreted by radiology as no evidence of acute intracranial pathology.? Consult with [facility] teleneurology was ordered and the patient had video conferencing on 03/05/2022.? The NIH score was 0.? Patient has persistent gait disturbance and the neurologist mention that a noncontrast MRI brain can have false negative and up to one third of cases particularly when the NIH score is less than 4 and with brainstem infarctions.? He recommended dual antiplatelet agents for 21 days and then stop aspirin.? He also recommended initiating a statin and consideration for MRI scans of the thoracic and lumbosacral spine and follow up with neurology in person.? Review of his lab shows a total cholesterol of 103 and triglycerides of 54.? The LDL is 54 and the HDL is low at 38.? A TSH was normal.? He is not a smoker.? He was on no prescribed medications at the time of presentation to the emergency department.? He was seen by PT/OT for ataxia and transfer to acute rehab was recommended.? He was transferred to the acute rehab unit at [facility] on 03/05/2022 for 3 hours of therapy daily to restore function/independence at or near his level prior to the recent event. On 03/06/22 he had complete resolution of the sx he had beginning 03/03/22. He had no vertigo throughout the course of his illness. He has had the same sx in the past and they resolved without him having to come to the ER. He had a cochlear implant [address] Thaddeus Ontiveros and he sees Dr. Ontiveros every 3 months or so for wax removal from the L EAC. The CT and the MRI showed changes consistent with L chronic mastoiditis. He has had no fevers, shaking chills or pain in the area of the mastoid. Since TIA's generally last a few hours and not more than 24 H and the MRI and CT were negative for stroke and he had complete resolution of his sx overnight I do not feel he had a stroke. I suspect the sx may be related to the cochlear implant. Dr. Ontiveros is going to have Don follow up with him in the office next week so that he has microscopy available. The L EAC seems to have a circumferential mass about mid canal. It does not look like wax to me. I can see just a very small area of the central TM and it is not red or bulging and it appears normal. He has no pain with percussion over the Left mastoid. He has no cervical chain adenopathy and no post auricular adenopathy. Since CVA is unlikely and his LDL was 54 on no meds prior to admission to the hospital I see no need for him to be on a statin. I discussed this with Juvenal and his , Tamra, and they agree. I also do not think he needs dual antiplatelet therapy and recommended he continue with only 81 mg of aspirin daily. Blood pressures were mildly elevated in the hospital and this may be due to stress or he may have mild hypertension. Lisinopril 5 mg daily was continued at discharge. He will follow-up with Dr. Damon Heaton to recheck his blood pressure and discuss whether he needs to continue with the lisinopril. An apt was made for him to follow up with Dr. Ever Akers in May and he should keep this appt if Dr. Ontiveros finds no problems with the cochlear implant. Weight / BMI Weight Weight: 213 lb 2.992 oz Body Mass Index (BMI) 28.1 D/C Instructions Discharge Diet: No restrictions May resume sexual activity in: No Restrictions Weight Bearing Status: Full weight bearing Call your doctor if you observe: Fever of 101 or Higher, Numbness or Tingling, Dizziness, Fainting spells, Chest pain, Increased palpitations (irregular heartbeat), Calf discomfort and - (any recurrence of the dyseuilibrium and leaning to the left or numbness/weakness on one side and not the other or sluured speech, inability to get your words out, facial droop. ) Pending Tests Upon Discharge: none Please Follow Up With: Ever Akers MD Meaningful Use Info Meaningful Use Diagnoses (Choose all that apply): None applicable Discharge Plan Admission Admit Date/Time: 03/05/22 14:15 Primary Reason for Your Visit: dysequilibrium and ataxia. Attending Provider: Aarti Elias Primary Care Provider: Damon Heaton Instructions Additional Instructions / Restrictions: 1. I do not think you had a stroke. Stroke symptoms do not suddenly go away over night, enrique when they are as bad as what you experienced. I suspect the cause of the recurring difficulty walking and leaning to the left is related to the cochlear implant. Dr. Ontiveros is going to follow up with you. I could only see a tiny part of the eardrum when I looked in your ear and he can look with a microscope in the office and do a better exam. 2. The goal for the LDL, bad cholesterol, in a patient with a stroke is 70 or less and your LDL is 53 even prior to the lipid-lowering drug. I personally would not take atorvastatin at this point because I do not believe you had a stroke. If you feel strongly that you want to take the atorvastatin I will write a prescription you just need to let me know. I also do not think you need Plavix but do recommend that you stay on 1 baby aspirin daily. Your blood pressure has been mildly elevated at times but this may be related to anxiety and fear that you had a stroke. You may be able to get off the antihypertensive, lisinopril, in the future and I would discuss this with Dr. Heaton. 3. If Dr. Ontiveros does not feel your symptoms are related to the cochlear implant then you should keep the appt with the neurologist, Dr. Ever Akers that has been scheduled for you in May. 4. STROKE WARNING SIGNS: If you have any of these symptoms go straight to the ER. 1. Sudden numbness or weakness of the face, arm or leg especially if on one side of the body only 2. Sudden confusion, trouble speaking or understanding speech 3. Sudden trouble seeing in 1 eye or both eyes 4. Sudden trouble walking, dizziness, loss of balance or incoordination 5. Sudden severe headache with no known cause 5. Follow up with Dr. Heaton. 6. If you have any questions after you leave rehab please do not hesitate to call me. Office: [phone] Discharge Orders/Prescriptions Prescriptions: Continued aspirin 81 mg Tablet 81 mg PO DAILY lisinopril 5 mg tablet 5 mg PO DAILY Qty: 30 0RF Discontinued clopidogrel [Plavix] 75 mg tablet 75 mg PO DAILY Qty: 21 0RF atorvastatin 40 mg tablet 40 mg PO QHS Qty: 30 1RF Referrals / Follow Up: DR EVER AKERS [Other] - 05/19/22 1:00 pm Damon Heaton DO [Primary Care Provider] - Thaddeus Ontiveros MD [Med Staff - Active Staff] - 03/13/22 8:00 am Robert Ornelas MD [NON-STAFF] - 07/31/22 9:00 am Disposition Disposition (needs filled in before D/C Order can be placed): Home, Self Care Charges/Coding Visit Charges Inpatient E&M: 33050 Disch Hosp
[2022-03-07 11:09] VITALS: BP 141/94; PULSE 62; RESP 16; TEMP 37.1; O2SAT 95
== END 2022-03-07 12:30 | disposition home or self-care (01) | DRG 93 ==
PROVIDERS: Admitting Provider Internal Medicine; PCP Student in an Organized Health Care Education/Training Program; Visit Provider Internal Medicine
DX: R27.0 Ataxia, unspecified (principal); H70.12 Chronic mastoiditis, left ear; I65.23 Occlusion and stenosis of bilateral carotid arteries; Z96.21 Cochlear implant status; Z79.899 Other long term (current) drug therapy; Z79.02 Long term (current) use of antithrombotics/antiplatelets; Z79.82 Long term (current) use of aspirin
CPT/HCPCS: 97116; 97162; 97166; 97530; 97535; 97802

== ENCOUNTER 2022-11-20 17:16 | Observation (INO) | payer MEDICARE, OTHER, SELFPAY ==
[2022-11-20] VITALS (8 sets, daily range): BP systolic 118–155; BP diastolic 68–98; PULSE 45–57; RESP 14–18; TEMP 36.4–36.8; O2SAT 91–98; BMI 28.7
--- NOTE | 2022-11-20 17:35 | EKG12_ITS ---
Test Reason : CP Blood Pressure : / mmHG Vent. Rate : 049 BPM Atrial Rate : 049 BPM P-R Int : 178 ms QRS Dur : 110 ms QT Int : 498 ms P-R-T Axes : 042 -36 032 degrees QTc Int : 449 ms Sinus bradycardia with occasional Premature ventricular complexes Left axis deviation Abnormal ECG Confirmed by LAISHA SORIA, TIANA ([id number]), editor house organ PRETTY DE [place]A [id number]) on 11/24/2022 11:45:43 AM Referred By: Amparo Porter Confirmed By:TIANA INTERIANO MD
[2022-11-20] MEDS: Ondansetron 4 MG/2 ML Vial IV (17:44)
[2022-11-20 17:48] LABS: Absolute Lymphocyte Count 1.81 X10^3/uL (0.83-4.51); Absolute Neutrophil Count 3.6 X10^3/uL (2.0-7.7); Basophil# 0.06 X10^3/uL; Basophil% 0.9 % (0-1); Eosinophil# 0.27 X10^3/uL; Eosinophils% 4.1 % (0-5); Hematocrit 46.6 % (40-54); Hemoglobin 15.3 g/dL (13.0-16.5); Lymphocyte # 1.81 X10^3/ul (0.83-4.51); Lymphocyte % 27.5 % (19-41); Mean Corp Hgb Conc 32.8 g/dL (32-36); Mean Corpuscular Hgb 32.3 pg (27.0-32.0); Mean Corpuscular Volume 98.5 fL (80-94); Mean Platelet Vol. 9.8 fl (6.2-12.0); Monocyte# 0.86 X10^3/uL; Monocyte% 13.1 % (0-10); NRBC Flagged by Analyzer 0 % (0-5); Neutrophil # 3.55 X10^3/uL (2.7-7.7); Neutrophil % 54.1 % (47-70); Platelet Count 261 K/mm3 (150-450); RBC Distribution Width CV 12.6 % (11.6-14.6); RBC Distribution Width SD 45.4 fl (35.1-43.9); Red Blood Count 4.73 M/mm3 (4.6-6.2); White Blood Count 6.6 K/mm3 (4.4-11.0)
[2022-11-20 18:02] LABS: AST(SGOT) 25 U/L (15-37); Alanine Aminotransfer ALT/SGPT 34 U/L (16-61); Albumin, Serum 3.6 g/dL (3.2-5.0); Alkaline Phosphatase 93 U/L (45-117); Anion Gap 3 (5-15); BUN 22 mg/dL (7-18); Calcium,Total 9.1 mg/dL (8.5-10.1); Chloride 109 mmol/L (98-107); Creatinine, Serum 1.05 mg/dL (0.70-1.30); EST Glomerular Filtration Rate 72 mL/min (>60); Est Glom Filt Rate - Afr Amer 87 mL/min (>60); Estimated Creatinine Clearance 63.41 ml/min; Globulin 3.7 g/dL (2.2-4.2); Glucose 107 mg/dL (74-106); Potassium 4.2 mmol/L (3.5-5.1); Protein, Total 7.3 g/dL (6.4-8.2); Sodium Level 139 mmol/L (136-145); Troponin-I HS (w/2H Reflex) 6 pg/mL (3.0-78.0)
[2022-11-20] MEDS: 0.9% Normal Saline 1,000 ML 150 ML IV ×2 (18:22→23:03)
--- NOTE | 2022-11-20 18:26 | CT_ITS ---
INDICATION: vertigo EXAMINATION: CT BRAIN WITH CONTRAST TECHNIQUE: Noncontrast axial images were obtained of the brain. Subsequently, routine carotid CT angiogram protocol was performed without and with IV contrast. In addition, images were obtained of the [place]. NASCET criteria using the distal ICAs for comparison were used for evaluation of stenoses. 3D reconstructions were reviewed. A radiation dose optimization technique was used for this scan. IV Contrast dosage and agent: COMPARISON: None. FINDINGS: --CT BRAIN: BRAIN PARENCHYMA: No intra- or extra-axial hemorrhage. No evidence of acute infarct. No intracranial mass or mass effect. There is preservation of the manuel/white matter interface. Posterior fossa structures are unremarkable. Areas of low attenuation in the white matter are consistent with microvascular ischemia. Moderate cerebral atrophy with widening of the extra-axial spaces and ventricular dilation. PARANASAL SINUSES AND MASTOID AIR CELLS: Clear. No demonstrated fracture. --CTA NECK: AORTIC ARCH AND BRANCHES: Normal anatomy, patent. RIGHT CCA: No occlusion, significant stenosis or dissection. RIGHT ICA: No occlusion, significant stenosis or dissection. LEFT CCA: No occlusion, significant stenosis or dissection. LEFT ICA: No occlusion, significant stenosis or dissection. RIGHT VERTEBRAL ARTERY: No occlusion, significant stenosis or dissection. LEFT VERTEBRAL ARTERY: No occlusion, significant stenosis or dissection. NECK SOFT TISSUES: Unremarkable. --CTA HEAD: --Anterior circulation: ICAs: No significant stenosis at the intracranial/visualized segments. ACAs: No significant stenosis at the visualized segments. ACOM: Present. MCAs: No significant stenosis at the visualized segments. --Posterior circulation: PCOMs: chair car driver: No significant stenosis at the visualized segments. BASILAR ARTERY: No significant stenosis. VERTEBRAL ARTERIES: No significant stenosis at the intradural/visualized segments. No evidence of intracranial aneurysm or vascular malformation. CT/CTA Head AND Neck W/ Contrast IMPRESSION: Negative CT Brain, CTA Carotid, and CTA Brain. Electronically Signed: Georgette Bocanegra MD at 19:20 EDT Reading Location ID and State: [id number] / Tel , Service support ,
--- NOTE | 2022-11-20 18:28 | EX.ED.DYSGE1 ---
HPI History of Present Illness Chief Complaint: Dizziness Detail of Chief Complaint: Dizziness and nausea Informant: patient Onset/Context/Timing Onset: Today Narrative Narrative: Patient presents via EMS secondary to dizziness and nausea. He states he felt generalized weakness all day today at work. After driving home from work he went to get out of his truck and felt dizzy that he describes as a spinning and off-balance sensation. His brought him a walker and he was able to use this to get into the house. He reports having nausea with some vomiting. EMS was called. He was able to get up from the couch and walk to the cot himself. At this time he states his symptoms are significantly improved but is not quite back to baseline. 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 Social History household members: spouse Smoking Status: Never smoker substance use type: does not use ROS ROS ED Constitutional Constitutional ED: Denies chills or fever(s) Eyes Eyes: Denies change in vision or discharge from eye(s) ENT ENT ED: Denies discharge from eye(s), rhinorrhea or sore throat Cardiovascular Cardiovascular: Denies chest pain or palpitations Respiratory/Chest Respiratory/Chest: Denies cough or dyspnea Gastrointestinal Gastrointestinal: Reports nausea and vomiting; Denies abdominal pain or diarrhea Genitourinary Genitourinary ED: Denies dysuria Musculoskeletal Musculoskeletal: Denies back pain or extremity pain Integumentary Denies Abrasions or rash Neurologic Neurologic: Reports weakness; Denies headache(s) Psychiatric Psychiatric: Denies anxiety or depression Allergic/Immunologic Allergic/Immunologic ED: Denies lip swelling or urticaria EXAM Physical Exam Const Vital Signs: 11/20/22 17:18 11/20/22 17:22 11/20/22 17:24 Temperature 97.5 F L Temperature Source Oral Pulse Rate 49 L 45 L Respiratory Rate 16 15 Respiratory Effort Normal Non-Labored Respiratory Pattern Normal Blood Pressure 144/98 H 131/87 H Blood Pressure Mean 113 101 Pulse Ox 97 98 Oxygen Delivery Method Room Air Room Air 11/20/22 17:58 11/20/22 19:22 11/20/22 20:28 Temperature Temperature Source Pulse Rate 52 L 57 L 46 L Respiratory Rate 18 18 14 Respiratory Effort Respiratory Pattern Blood Pressure 155/90 H 138/79 H 149/77 H Blood Pressure Mean 111 98 101 Pulse Ox 96 94 91 Oxygen Delivery Method Room Air Room Air Room Air Positive well nourished and well developed General Appearance ED: well developed HEENT Reports normocephalic and head/scalp atraumatic Eyes PERRL and EOMs intact bilaterally Neck supple Chest Wall inspection of chest normal and palpation of chest normal Resp normal respiratory effort and clear to auscultation bilaterally Cardio regular rhythm Rate: bradycardia GI non-tender Auscultation: hypoactive bowel sounds Palpation: soft Back/Spine no CVA tenderness Extremity normal to inspection Neuro oriented x3 and no sensory deficits noted Neuro Narrative: NIH equals 0 Sensorium / Orientation: alert Motor Exam: strength 5/5 throughout Psych mental status grossly normal Skin no rashes or lesions noted MDM MDM MDM Narrative Medical decision making narrative: Patient placed on bus driver/monitor. EKG obtained to evaluate for cardiac arrhythmia/ischemia. Labwork obtained to evaluate for leukocytosis, anemia, and electrolyte derangement. Patient given Zofran for nausea along with IV fluids. Lab Data Attestation: I reviewed the patient's lab results. Labs: Laboratory Results - last 24 hr 11/20/22 11/20/22 11/20/22 17:20 17:20 19:30 WBC 6.6 RBC 4.73 Hgb 15.3 Hct 46.6 MCV 98.5 H MCH 32.3 H MCHC 32.8 RDW Std Deviation 45.4 H RDW Coeff of Silvana 12.6 Plt Count 261 MPV 9.8 Immature Gran % (Auto) 0.300 Neut % (Auto) 54.1 Lymph % (Auto) 27.5 [place] % (Auto) 13.1 H Eos % (Auto) 4.1 Baso % (Auto) 0.9 Absolute Neuts (auto) 3.6 Absolute Lymphs (auto) 1.81 Nucleated RBC % 0 Sodium 139 Potassium 4.2 Chloride 109 H Carbon Dioxide 27.0 Anion Gap 3 L BUN 22 H Creatinine 1.05 Estim Creat Clear Calc 63.41 Est GFR (MDRD) Af Amer 87 Est GFR (MDRD) Non-Af 72 BUN/Creatinine Ratio 21.0 H Glucose 107 H Calcium 9.1 Total Bilirubin 0.30 Direct Bilirubin 0.10 AST 25 ALT 34 Alkaline Phosphatase 93 Troponin I High Sens 6 8 Total Protein 7.3 Albumin 3.6 Globulin 3.7 Radiography Diagnostic Testing: Clinical Impression(s) from Imaging Studies Head/Neck CTA 11/20/22 18:26 IMPRESSION: Negative CT Brain, CTA Carotid, and CTA Brain. Electronically Signed: Georgette Bocanegra MD at 19:20 EDT Reading Location ID and State: [id number] / Tel , Service support , EKG Initial EKG: Attestation: I personally reviewed and interpreted this EKG as follows: Interpretation: Sinus Bradycardia (Sinus bradycardia at 49 with PVC. No acute ischemia. QTc is 449.) Treatment and Re-Evaluation :: I did review patient's prior records and he has had episodes of bradycardia here in the past with heart rates down into the 40s. His blood pressure has remained stable despite bradycardia. CBC is unremarkable. Chemistry studies normal. LFTs normal. Troponin is normal at 6. On repeat evaluation he was feeling well and thought he was back to baseline. 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 When I read through the notes it appears the patient had disequilibrium that was attributed to his implanted hearing aid. His MRI did not show evidence of an acute infarct, however neurology consult stated that it can be very difficult to visualize an infarct with such a low NIH score. Given this patient was sent for CTA of the head and neck. This is unremarkable. Nursing staff to get the patient up to ambulate him. They stated that as soon as he got up to walk he got dizzy and had vomiting. Patient states he did not feel like everything was spinning, but rather felt lightheaded and nauseous. Patient is given p.o. Antivert. 2-hour repeat troponin is obtained and normal. When patient again got up to ambulate he became dizzy and nauseated. I will speak with hospitalist regarding admission. Discharge Plan Triage Chief Complaint: Dizziness Other Complaint: Nausea/Vomiting ED Provider: Amparo Porter Dx/Rx/DC Orders Clinical Impression: Vertigo Prescriptions: No Action lisinopril 5 mg tablet 5 mg PO DAILY Qty: 30 0RF Primary Care Provider: Damon Heaton Referrals: Damon Heaton DO [Primary Care Provider] - Disposition Disposition: Acute Care Hospital [facility]
[2022-11-20 19:39] LABS: Reflex Troponin-HS? (from REC) Y
[2022-11-20] MEDS: Meclizine HCl 25 MG Tablet PO (19:40)
[2022-11-20 20:12] LABS: Troponin-I HS 8 pg/mL (3.0-78.0)
--- NOTE | 2022-11-20 21:04 | PCM.HP.STD ---
HPI - General General Date of Admission: 11/20/22 Date of Service: 11/20/22 Chief Complaint: Debility, malaise with onset N/V/Dizziness/vertigo HPI Narrative The patient is an 82 y/o M w/ PMHx: Chronic Sinus Bradycardia, HTN, Hx BAHA in place, Chart history chronic mastoiditis who presents to the [facility] ED on 11/20/22 with history of generalized weakness and debility over the last 24 hours reportedly driving home from work and once he got out of his truck felt dizzy and lightheaded with a spinning and off-balance sensation prompting to bring him a walker and with this he was able to get into the house however he had nausea and emesis prompting eventual EMS call but when they did, he was able to get up off the couch and walk to the cot himself. His who is present for evaluation denies herself any recent increased fatigue, malaise or onset of any type of URI type symptoms. Work-up in the ED included T97.5, heart initially 49 with most recent repeat 57, BP initially 144/98, respiratory rate 16, 97% on room air, CBC with WBC 6.6, hemoglobin 15.3, platelet 261 without marked shift, CMP with chloride 109, BUN/creatinine 22/1.05, glucose 107 otherwise not marked appearing, unremarkable hepatic profile, troponin 6 with repeat 8, CT head, CTA head and neck with no acute findings, EKG with sinus bradycardia with PVC with no acute evidence of ischemia with QTc 449. In the ED patient ministered Zofran 4 mg IV x1 as well as meclizine 25 mg p.o. x1 and maintenance IV fluids. [facility] Medical History (Updated 11/20/22 @ 20:[address] Melly Jimenez MD) Chronic sinus bradycardia HTN (hypertension) Status post placement of bone anchored hearing aid (BAHA) Home Medications lisinopril 5 mg tablet 5 mg PO DAILY #30 tabs 03/07/22 [Rx Last Taken Unknown] Allergy/AdvReac Type Severity Reaction Status Date / Time azithromycin [From Zithromax] AdvReac Other Verified 11/20/22 17:18 Family History (Updated 11/20/22 @ 20:[address] Melly Jimenez MD) Mother Dementia Father CVA (cerebral vascular accident) Surgical History (Updated 11/20/22 @ 20:[address] Melly Jimenez MD) History of total bilateral knee replacement Social History (Updated 11/20/22 @ 20:[address] Melly Jimenez MD) household members: spouse Smoking Status: Never smoker alcohol intake: never substance use type: does not use ROS ROS Narrative Admission Review of Systems: CONSTITUTIONAL: No weight loss, fever, chills, + weakness or fatigue. HEENT: + Status post BAHA. Eyes: No visual loss, blurred vision, double vision or yellow sclerae. Ears, Nose, Throat: No hearing loss, sneezing, congestion, runny nose or sore throat. SKIN: No rash or itching, lesions, wounds. CARDIOVASCULAR: No chest pain, chest pressure or chest discomfort, palpitations, edema, orthopnea, syncopal events. RESPIRATORY: No shortness of breath, cough or sputum, wheezing, hemoptysis. GASTROINTESTINAL: No anorexia, nausea, vomiting or diarrhea, abdominal pain, melena, BRBPR. GENITOURINARY: No dysuria, frequency, urgency or retention. NEUROLOGICAL: + Dizziness, lightheadedness, vertigo. No headache, paralysis, ataxia, numbness or tingling in the extremities, focal weakness, change in bowel or bladder control, seizure. MUSCULOSKELETAL: No muscle, back pain, joint pain or stiffness. HEMATOLOGIC: No anemia, bleeding or bruising. LYMPHATICS: No enlarged nodes. No history of splenectomy. PSYCHIATRIC: No history of depression or anxiety. ENDOCRINOLOGIC: No reports of sweating, cold or heat intolerance. No polyuria or polydipsia. ALLERGIES: No history of asthma, hives, eczema or rhinitis. Vital Signs Vital Signs Vital Signs: 11/20/22 17:18 11/20/22 17:22 11/20/22 17:24 Temperature 97.5 F L Temperature Source Oral Pulse Rate 49 L 45 L Respiratory Rate 16 15 Respiratory Effort Normal Non-Labored Respiratory Pattern Normal Blood Pressure 144/98 H 131/87 H Blood Pressure Mean 113 101 Pulse Ox 97 98 Oxygen Delivery Method Room Air Room Air 11/20/22 17:58 11/20/22 19:22 11/20/22 20:28 Temperature Temperature Source Pulse Rate 52 L 57 L 46 L Respiratory Rate 18 18 14 Respiratory Effort Respiratory Pattern Blood Pressure 155/90 H 138/79 H 149/77 H Blood Pressure Mean 111 98 101 Pulse Ox 96 94 91 Oxygen Delivery Method Room Air Room Air Room Air Weight Weight: 217 lb 13.067 oz Body Mass Index (BMI) 28.7 Physical Exam Narrative Physical Examination: General: Awake, alert, oriented x 3 and cooperative, seated upright in the ED bed in no apparent distress, notes improved but still symptoms when he is attempting to get up. Skin: Normal color, normal turgor, no icterus, no cyanosis. HEENT: AT/NC, EOMI, PERRLA, dry MM, no carotid bruits or JVD noted. Lungs: CTA bilaterally, moderate effort, mild decrease BL bases, no rales, ronchi or wheezing. Heart: Mildly bradycardic with regular rhythm; no gallop, rub audible. Abdomen: Soft, NTTP, ND, mildly hyperactive BS, no HSM. Extremities: No cyanosis, clubbing, or edema. Neurological: Patient awake, alert, oriented as noted, cognitive function intact; pupils equally reactive to light and accommodation, cranial nerves II-XII grossly normal, moving all 4 extremities, no focal deficits, strength improving but still remains mildly to moderately global decrease, worse when he attempts to increase his activity, unable to reproduce any nystagmus but he notes his symptoms have currently improved. Psychiatric: Affect appears fatigued, notes feeling somewhat improved, no acute evidence of depressive or anxiety feelings. Results Lab / Micro Data Result Diagrams: 11/20/22 17:20 11/20/22 17:20 Labs: Laboratory Results - last 24 hr 11/20/22 17:20: WBC 6.6, RBC 4.73, Hgb 15.3, Hct 46.6, MCV 98.5 H, MCH 32.3 H, MCHC 32.8, RDW Std Deviation 45.4 H, RDW Coeff of [place] 12.6, Plt Count 261, MPV 9.8, Immature Gran % (Auto) 0.300, Neut % (Auto) 54.1, Lymph % (Auto) 27.5, [place] % (Auto) 13.1 H, Eos % (Auto) 4.1, Baso % (Auto) 0.9, Absolute Neuts (auto) 3.6, Absolute Lymphs (auto) 1.81, Nucleated RBC % 0 11/20/22 17:20: Sodium 139, Potassium 4.2, Chloride 109 H, Carbon Dioxide 27.0, Anion Gap 3 L, BUN 22 H, Creatinine 1.05, Estim Creat Clear Calc 63.41, Est GFR (MDRD) Af Amer 87, Est GFR (MDRD) Non-Af 72, BUN/Creatinine Ratio 21.0 H, Glucose 107 H, Calcium 9.1, Total Bilirubin 0.30, Direct Bilirubin 0.10, AST 25, ALT 34, Alkaline Phosphatase 93, Troponin I High Sens 6, Total Protein 7.3, Albumin 3.6, Globulin 3.7 11/20/22 19:30: Troponin I High Sens 8 Radiology Impression Head/Neck CTA 11/20/22 18:26 IMPRESSION: Negative CT Brain, CTA Carotid, and CTA Brain. Electronically Signed: Georgette Bocanegra MD at 19:20 EDT Reading Location ID and State: [id number] / Tel , Service support , Assessment & Plan Assessment/Plan (1) Vertigo: PLAN: Plan The patient is an 82 y/o M w/ PMHx: Chronic Sinus Bradycardia, HTN, Hx BAHA in place, Chart history chronic mastoiditis who presents to the [facility] ED on 11/20/22 with history of generalized weakness and debility over the last 24 hours reportedly driving home from work and once he got out of his truck felt dizzy and lightheaded with a spinning and off-balance sensation prompting to bring him a walker and with this he was able to get into the house however he had nausea and emesis prompting eventual EMS call. #1. Debility with lightheadedness, dizziness and vertiginous symptoms, possibly benign positional vertigo possibly in the setting of acute viral syndrome: We will admit to medical surgical floor, will obtain COVID PCR and respiratory viral panel to be cautious, will maintain on fall precautions, continue aggressive hydration, will initiate and continue on scheduled Valium regimen with as needed antiemetics but if not improving on reevaluation in a.m. low threshold to obtain MRI of the brain to be cautious if BAHA does not preclude obtaining, PT consulted for vestibular therapy consideration if needed as well as case management. #2. Hypertension: Continue home regimen including lisinopril, PRN hydralazine. #3. Chronic sinus bradycardia: Heart rate 40s to 50s, review of prior baseline similar, stable. #4. DVT prophylaxis: Low risk. #5. CODE STATUS: Full code. Admission Evaluation Time spent evaluating chart, patient history, patient evaluation, care planning and discussion with specialists: 55 minutes. Charges/Coding Visit Charges Inpatient E&M: 83405 Init Hosp L2
[2022-11-20] MEDS: 0.9% Normal Saline 1,000 ML 999 ML IV (21:49)
[2022-11-20] MEDS: 0.9% Saline Lock 10 ML Syringe IV (21:49)
[2022-11-20] MEDS: proCHLORPERazine 10 MG/2 ML Vial 5 MG IV (22:08)
[2022-11-20] MEDS: Famotidine 20 MG Tablet PO (23:03)
[2022-11-20] MEDS: diazePAM 2 MG Tablet PO (23:03)
[2022-11-21] VITALS (7 sets, daily range): BP systolic 108–118; BP diastolic 54–65; PULSE 51–79; RESP 16–18; TEMP 36.6–37.1; O2SAT 93–96
[2022-11-21] MEDS: diazePAM 2 MG Tablet PO (05:22)
[2022-11-21] MEDS: 0.9% Normal Saline 1,000 ML 150 ML IV (05:22)
[2022-11-21 06:39] LABS: Absolute Lymphocyte Count 1.25 X10^3/uL (0.83-4.51); Absolute Neutrophil Count 5.7 X10^3/uL (2.0-7.7); Basophil# 0.05 X10^3/uL; Basophil% 0.6 % (0-1); Eosinophil# 0.11 X10^3/uL; Eosinophils% 1.4 % (0-5); Hematocrit 39.9 % (40-54); Hemoglobin 13.2 g/dL (13.0-16.5); Lymphocyte # 1.25 X10^3/ul (0.83-4.51); Lymphocyte % 15.6 % (19-41); Mean Corp Hgb Conc 33.1 g/dL (32-36); Mean Corpuscular Hgb 32.8 pg (27.0-32.0); Mean Corpuscular Volume 99.3 fL (80-94); Mean Platelet Vol. 9.6 fl (6.2-12.0); Monocyte# 0.87 X10^3/uL; Monocyte% 10.9 % (0-10); NRBC Flagged by Analyzer 0 % (0-5); Neutrophil % 71.2 % (47-70); Platelet Count 245 K/mm3 (150-450); RBC Distribution Width CV 12.6 % (11.6-14.6); RBC Distribution Width SD 46.2 fl (35.1-43.9); Red Blood Count 4.02 M/mm3 (4.6-6.2)
[2022-11-21 07:09] LABS: ALB/GLOB Ratio 1.1 RATIO (0.9-2.4); AST(SGOT) 22 U/L (15-37); Alanine Aminotransfer ALT/SGPT 25 U/L (16-61); Albumin, Serum 2.9 g/dL (3.2-5.0); Alkaline Phosphatase 66 U/L (45-117); Anion Gap 2 (5-15); BUN 17 mg/dL (7-18); BUN/Creat Ratio 21.4 RATIO (10-20); Calcium,Total 7.9 mg/dL (8.5-10.1); Chloride 114 mmol/L (98-107); EST Glomerular Filtration Rate 99 mL/min (>60); Est Glom Filt Rate - Afr Amer 120 mL/min (>60); Estimated Creatinine Clearance 83.23 ml/min; Globulin 2.6 g/dL (2.2-4.2); Glucose 104 mg/dL (74-106); Potassium 3.7 mmol/L (3.5-5.1); Protein, Total 5.5 g/dL (6.4-8.2); Sodium Level 141 mmol/L (136-145)
--- NOTE | 2022-11-21 08:23 | DCINST_ITS ---
Discharge Instructions Diet Discharge Diet: 2000 mg Sodium Diet Activity Discharge Activity: Return to Normal Activity Weight Bearing Status: Weight bearing as tolerated Dressing / Incision Call your doctor if you observe: Fever of 101 or Higher, Coldness, Increased Pain, Numbness or Tingling, Change in Color, Inability to urinate, Inability to have a bowel movement, Shortness of breath, Dizziness, Fainting spells, Swelling in the ankles, Chest pain, Prolonged hiccupping, Increased palpitations (irregular heartbeat) and Calf discomfort Follow Up Care When: IN 2 WEEKS Test Results: Test results from this visit will be discussed in further detail at your follow- up appointment, if applicable. Discharge Plan Admission Admit Date/Time: 11/20/22 20:39 Primary Reason for Your Visit: Dizziness and vertigo, most probably BPPV Attending Provider: Venkat Cadena Primary Care Provider: Damon Heaton Consulting Providers: Melly Jimenez Discharge Orders/Prescriptions Prescriptions: New meclizine [Antivert] 25 mg tablet,chewable 12.5 mg PO Q6H PRN PRN (Reason: dizziness) Qty: 30 0RF Continued lisinopril 5 mg tablet 5 mg PO DAILY Qty: 30 0RF Referrals / Follow Up: Damon Heaton DO [Primary Care Provider] - Disposition Disposition (needs filled in before D/C Order can be placed): Home, Self Care
--- NOTE | 2022-11-21 08:23 | MRI_ITS ---
STUDY: MRI BRAIN WITHOUT CONTRAST REASON FOR EXAM: Male, 82 years old. Stroke -- vertigo with vomiting, generalized weakness TECHNIQUE: Standardized multiplanar fat and water weighted pulse sequences were obtained. COMPARISON: March 04, 2022 FINDINGS: There is moderate cerebral atrophy with widening of the extra-axial spaces and ventricular dilatation. Normal white matter tracts of the supratentorial brain. There is no evidence for recent intracranial ischemia or other cause of cytotoxic edema on diffusion weighted imaging (DWI). Normal T2* images of the brain without demonstrated susceptibility artifact. There is no demonstrated hemosiderin stain. Normal bilateral basal ganglia. Normal thalami. There is no extra-axial fluid accumulation. Normal flow voids within the major intracranial circulation suggesting patency by spin echo criteria. Normal sella turcica, pituitary gland, infundibular stalk, optic chiasm and hypothalamus. Normal tectal plate and pineal gland. Normal midbrain, ambrocio and medulla. Normal cerebellum. Normal basal cisterns. There is mild fluid signal intensity of the mastoid region of the left temporal bone. Normal bilateral internal auditory canals. No demonstrated orbital abnormality, within the constraints of a routine brain study. Normal visualized paranasal sinuses. Normal calvarium and skull base. Normal visualized soft tissue structures. Normal visualized upper cervical spine. MRI/Brain without Contrast IMPRESSION: Involutional changes of the brain, as described above. Left mastoid fluid. Electronically Signed: Abhisehk Sahu MD at 12:48 EDT ,
[2022-11-21] MEDS: Lisinopril 5 MG Tablet PO (09:50)
[2022-11-21] MEDS: Famotidine 20 MG Tablet PO (09:50)
[2022-11-21] MEDS: LORazepam 2 MG/ML Syringe 0.5 MG IV (10:00)
--- NOTE | 2022-11-21 11:28 | CASEMGMT ---
Noted no therapy recommended by PT javed. RN CM into pt room, pt sitting up in chair. Pt states his dizziness has resolved. He lives with his , does not typically use AD but has a walker at home. Pt denies any homegoing needs. He reports he feels safe to return home.
--- NOTE | 2022-11-21 13:15 | DS.PCM_ITS ---
Providers Date of Admission: 11/20/22 Date of Discharge: 11/21/22 Primary Care Physician: Dr. Damon Heaton DO Reason For Visit: VERTIGO Diagnosis Discharge Diagnosis (1) Vertigo: Status: Acute Code(s): R42 - Dizziness and giddiness Plan This is 82-year-old gentleman was admitted with generalized weakness and debility over last 24 hours along with dizziness and vertigo. Patient when got out of his truck he felt dizzy and lightheaded and off-balance. He also had nausea and vomiting. His vitals were in normal range except heart rate initially at 49 and then repeat 57/min. Patient has chronic sinus bradycardia. He was given Zofran and meclizine and was admitted to [facility] for further eval uation. 1. Dizziness vertigo, nausea vomiting peripheral symptoms consistent with BPPV, acute stroke ruled out.: Patient was admitted on [facility] floor. On exam, Romberg's test he was unsteady on closing feet therefore MRI brain was ordered. MRI brain does not show recent or acute ischemia or infarct. CTA head and neck was also done which was reported negative. Patient did not need further imaging and evaluation. Dizziness and vertigo has resolved. Patient be discharged on meclizine as needed. 2. Chronic sinus bradycardia and hypertension: Patient heart rate was normal- baseline during hospital course. Continue home medication lisinopril for hypertension. BP 110/62, 112/64. Labs reviewed. Labs reviewed and within acceptable limit. Troponin negative. COVID-19 PCR negative. Respiratory panel negative. Patient is discharged home. Discharge medication reconciliation done. Discharge follow-up instructions completed. Discharge process discussed with the patient and all questions were answered to patient's satisfaction. Total time spent, exact 35 minutes on discharge meds reconciliation, examination, coordination of care with nurses and ancillary staff, review of imaging and blood test and discussion with the patient on follow-up instruct ions. Medications at Discharge Home Medications lisinopril 5 mg tablet 5 mg PO DAILY #30 tabs 03/07/22 meclizine 25 mg chewable tablet (Antivert) 12.5 mg PO Q6H PRN PRN dizziness #30 tabs 11/21/22 Physical Exam Narrative Seen and examined. Dizziness and vertigo has resolved. Patient does not feel unsteady on his standing. Physical exam General: Alert, Oriented x3, Cooperative HEENT: Atraumatic, PERRLA, EOMI, Normocephalic. [place]-Hallpike maneuver negative for nystagmus nausea or vomiting. Oral: Oral mucosa moist. No Gingival or Mucosal Lesions/ Ulcerations Neck: Supple, No JVD, Negative Carotid Bruits Lungs: Air entry diminished in bilateral lung bases. No crepitation/rhonchi Cardiovascular: Regular rate, Regular Rhythm, Normal S1, Normal S2, No murmurs Abdomen: Bowel Sounds Present, Soft, Non Tender, Non-Distended : No renal angle tenderness. No suprapubic tenderness. Extremities: No edema, Capillary Refill Less than 3 Seconds Skin: No rashes, No breakdown Musculoskeletal: No Tenderness to Palpation of Joints or Extremities Neurological: Cranial nerves II-XII grossly intact, DTR 2+/4, struggles strength 5/5 at major joints of lower extremities. Romberg's test positive on closing feet. [id number] and heel jackson test were negative. Psych/Mental Status: Normal Affect, Appropriate. Weight / BMI Weight Weight: 217 lb 13.067 oz Body Mass Index (BMI) 28.7 ABG / Lab / Microbiology Data Result Diagrams: 11/21/22 06:00 11/21/22 06:00 Laboratory: Laboratory Results - last 24 hr 11/20/22 17:20: WBC 6.6, RBC 4.73, Hgb 15.3, Hct 46.6, MCV 98.5 H, MCH 32.3 H, MCHC 32.8, RDW Std Deviation 45.4 H, RDW Coeff of Silvana 12.6, Plt Count 261, MPV 9.8, Immature Gran % (Auto) 0.300, Neut % (Auto) 54.1, Lymph % (Auto) 27.5, [place] % (Auto) 13.1 H, Eos % (Auto) 4.1, Baso % (Auto) 0.9, Absolute Neuts (auto) 3.6, Absolute Lymphs (auto) 1.81, Nucleated RBC % 0 11/20/22 17:20: Sodium 139, Potassium 4.2, Chloride 109 H, Carbon Dioxide 27.0, Anion Gap 3 L, BUN 22 H, Creatinine 1.05, Estim Creat Clear Calc 63.41, Est GFR (MDRD) Af Amer 87, Est GFR (MDRD) Non-Af 72, BUN/Creatinine Ratio 21.0 H, Glucose 107 H, Calcium 9.1, Total Bilirubin 0.30, Direct Bilirubin 0.10, AST 25, ALT 34, Alkaline Phosphatase 93, Troponin I High Sens 6, Total Protein 7.3, Albumin 3.6, Globulin 3.7 11/20/22 19:30: Troponin I High Sens 8 11/20/22 20:50: COVID-19 (TIFFANIE) Not Detected 11/21/22 06:00: WBC 8.0, RBC 4.02 L, Hgb 13.2, Hct 39.9 L, MCV 99.3 H, MCH 32.8 H, MCHC 33.1, RDW Std Deviation 46.2 H, RDW Coeff of Silvana 12.6, Plt Count 245, MPV 9.6, Immature Gran % (Auto) 0.300, Neut % (Auto) 71.2 H, Lymph % (Auto) 15.6 L, [place] % (Auto) 10.9 H, Eos % (Auto) 1.4, Baso % (Auto) 0.6, Absolute Neuts (auto) 5.7, Absolute Lymphs (auto) 1.25, Nucleated RBC % 0 11/21/22 06:00: Sodium 141, Potassium 3.7, Chloride 114 H, Carbon Dioxide 25.0, Anion Gap 2 L, BUN 17, Creatinine 0.80, Estim Creat Clear Calc 83.23, Est GFR (MDRD) Af Amer 120, Est GFR (MDRD) Non-Af 99, BUN/Creatinine Ratio 21.4 H, Glucose 104, Calcium 7.9 L, Total Bilirubin 0.40, AST 22, ALT 25, Alkaline Phosphatase 66, Total Protein 5.5 L, Albumin 2.9 L, Globulin 2.6, Albumin/Gl obulin Ratio 1.1 Microbiology: Microbiology 11/20/22 20:50 Mucosa - Nasopharyngeal Respiratory Panel (PCR) - Final Radiography Diagnostic Testing: Radiology Impression Head/Neck CTA 11/20/22 18:26 IMPRESSION: Negative CT Brain, CTA Carotid, and CTA Brain. Electronically Signed: Georgette Bocanegra MD at 19:20 EDT Reading Location ID and State: [id number] / Tel , Service support , Brain MRI 11/21/22 08:23 IMPRESSION: Involutional changes of the brain, as described above. Left mastoid fluid. Electronically Signed: Abhishek Sahu MD at 12:48 EDT Reading Location ID and State: [id number] [place] [address] , Service support , D/C Instructions Discharge Diet: 2000 mg Sodium Diet Weight Bearing Status: Weight bearing as tolerated Call your doctor if you observe: Fever of 101 or Higher, Coldness, Increased Pain, Numbness or Tingling, Change in Color, Inability to urinate, Inability to have a bowel movement, Shortness of breath, Dizziness, Fainting spells, Swelling in the ankles, Chest pain, Prolonged hiccupping, Increased palpitations (irregular heartbeat) and Calf discomfort When: IN 2 WEEKS Meaningful Use Info Meaningful Use Diagnoses (Choose all that apply): None applicable Discharge Plan Admission Admit Date/Time: 11/20/22 20:39 Primary Reason for Your Visit: Dizziness and vertigo, most probably BPPV Attending Provider: Venkat Cadena Primary Care Provider: Damon Heaton Consulting Providers: Melly Jimenez Discharge Orders/Prescriptions Prescriptions: New meclizine [Antivert] 25 mg tablet,chewable 12.5 mg PO Q6H PRN PRN (Reason: dizziness) Qty: 30 0RF Continued lisinopril 5 mg tablet 5 mg PO DAILY Qty: 30 0RF Referrals / Follow Up: Damon Heaton DO [Primary Care Provider] - Disposition Disposition (needs filled in before D/C Order can be placed): Home, Self Care Charges/Coding Visit Charges Inpatient E&M: 15432 Disch Hosp >30min
== END 2022-11-21 13:46 | disposition home or self-care (01) ==
LOC: ED 20:40 → MS3 20:47
PROVIDERS: Admitting Provider Family Medicine; Emergency Provider Emergency Medicine; PCP Student in an Organized Health Care Education/Training Program; Referring Provider Emergency Medicine; Visit Provider Internal Medicine
DX: R42 Dizziness and giddiness (principal); I10 Essential (primary) hypertension; R53.81 Other malaise; R11.2 Nausea with vomiting, unspecified; Z79.899 Other long term (current) drug therapy; R00.1 Bradycardia, unspecified
CPT/HCPCS: 36415; 70496; 70498; 70551; 80048; 80053; 80076; 84484; 85025; 87633; 87635; 93005; 96361; 96374; 96375; 97161; 99221; 99285; J7030; J7040; Q9967; A4216; G0378; J2405; U0003; U0005